=== PATIENT | female | born 1965 | race African-American/Black ===

== ENCOUNTER 2017-04-13 10:38 | Inpatient (IN) | payer OTHER ==
[2017-04-13] MEDS ORDERED: MAGNESIUM HYDROX 2400MG/30ML ORAL SUSPENSION 30 ML CUP PO PRN (12:40)
[2017-04-13] MEDS ORDERED: MAG HYDROX/AL HYDROX/SIMETH 30 ML UNIT-DOSE CUP PO PRN (12:40)
[2017-04-13] MEDS ORDERED: MAGNESIUM CITRATE 300 ML BOTTLE PO PRN (12:40)
[2017-04-13] MEDS ORDERED: LOPERAMIDE HCL 2 MG CAPSULE PO PRN (12:40)
[2017-04-13] MEDS ORDERED: guaiFENesin/D-METHORPHAN HB 10 ML UNIT-DOSE CUPS PO PRN (12:40)
[2017-04-13] MEDS ORDERED: P-EPHED 60MG/TRIPROLIDI 2.5MG TABLET PO PRN (12:40)
[2017-04-13] MEDS ORDERED: MENTHOL/PHENOL 1 EACH UD MM PRN (12:40)
[2017-04-13] MEDS ORDERED: ALBUTEROL SO4 18 GM HFA INHALER IH PRN (12:41)
--- NOTE | 2017-04-13 12:43 | HP ---
JANEY DOMINGUEZ Rehab Assess/Revision - Admission History Admitted to Rehab from: [facility] Date of Admission to Rehab: 04/13/17 - Vital signs Vital Signs: Vital Signs Period Temp Pulse Resp BP Sys/[place] Pulse Ox Last 24 Hr 97.9 F 79 18 116/77 - Findings Detox History & Physical reviewed: Yes Concur with findings: Yes Inpatient Rehab Admission - Initial Determination Are CD services needed?: Yes Free of communicable disease: Yes Not in need of hospitalization: Yes - Rehab Admission Criteria Previous failed treatment: Yes Poor recovery environment: Yes Comorbidities: Yes Lacks judgement: Yes Patient is meeting Inpatient Rehab admission criteria:: Yes
[2017-04-13] MEDS: BUPRENORPHINE/NALOXONE 2 MG/0.5 MG FILM PACKET SL SCH (21:08)
[2017-04-13] MEDS: THIAMINE HCL 100 MG TABLET (FP) PO SCH (21:08)
[2017-04-14] MEDS: BUPRENORPHINE/NALOXONE 2 MG/0.5 MG FILM PACKET SL SCH ×2 (09:42→21:09)
[2017-04-14] MEDS: NICOTINE 14 MG/24 HOURS TOPICAL PATCH TD SCH (09:42)
[2017-04-14] MEDS: PRENATAL VITAMINS W/ FOLIC ACID TABLET (FP) PO SCH (09:42)
[2017-04-14] MEDS ORDERED: AMMONIUM LACTATE 12% LOTION 225 GM BOTTLE TP PRN (15:42)
[2017-04-14] MEDS: MAG HYDROX/ALH/SMC/DPHA/LIDO 240 ML MOUTHWASH MM SCH (18:10)
[2017-04-14] MEDS ORDERED: PT OWN MED DRAWER 7, Y5N ONE ×2 (19:27→23:31)
[2017-04-14] MEDS: THIAMINE HCL 100 MG TABLET (FP) PO SCH (21:09)
[2017-04-15] MEDS: MAG HYDROX/ALH/SMC/DPHA/LIDO 240 ML MOUTHWASH MM SCH ×5 (00:25→23:14)
[2017-04-15] MEDS: NICOTINE 14 MG/24 HOURS TOPICAL PATCH TD SCH (09:48)
[2017-04-15] MEDS: BUPRENORPHINE/NALOXONE 2 MG/0.5 MG FILM PACKET SL SCH (09:49)
[2017-04-15] MEDS: PRENATAL VITAMINS W/ FOLIC ACID TABLET (FP) PO SCH (09:49)
[2017-04-15] MEDS: NICOTINE POLACRILEX 2 MG GUM BUC PRN (09:50)
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
--- NOTE | 2017-04-15 15:33 | PN ---
S Progress Note (SOAP) Subjective: patient requesting increase suboxone, still has cravings, desire to use, dry skin Objective: 04/15/17 15:32 Vital Signs - 24 hr 04/15/17 04/15/17 04/15/17 00:30 03:30 07:04 Temperature 97.7 F Pulse Rate 75 Respiratory 16 16 18 Rate Blood Pressure 124/82 Laboratory Tests 04/14/17 06:00 HIV 1&2 Antibody Screen Negative HIV P24 Antigen Negative labs reviewed Assessment: 04/15/17 15:32 increase suboxone to 8mg daily, 4mg stat dose ow, a and d ointment with lachydrin for dry skin.,
[2017-04-15] MEDS ORDERED: BUPRENORPHINE/NALOXONE 2 MG/0.5 MG FILM PACKET SL ONE (15:48)
[2017-04-15] MEDS ORDERED: VITAMINS A AND D TOPICAL OINTMENT 60 GM TUBE TP SCH (18:00)
[2017-04-15] MEDS: traZODone HCL 50 MG TABLET (FP) PO SCH (21:03)
[2017-04-15] MEDS: THIAMINE HCL 100 MG TABLET (FP) PO SCH (21:03)
[2017-04-15] MEDS: VITAMINS A AND D TOPICAL OINTMENT 60 GM TUBE TP SCH (21:04)
[2017-04-15] MEDS: AMMONIUM LACTATE 12% LOTION 225 GM BOTTLE TP SCH (21:05)
[2017-04-16] MEDS: MAG HYDROX/ALH/SMC/DPHA/LIDO 240 ML MOUTHWASH MM SCH ×3 (06:48→19:15)
[2017-04-16] MEDS ORDERED: PT OWN MED DRAWER 7, Y5N ONE ×3 (06:48→21:07)
[2017-04-16] MEDS: CITALOPRAM HYDROBROMIDE 20 MG TABLET (FP) PO SCH (09:51)
[2017-04-16] MEDS: VITAMINS A AND D TOPICAL OINTMENT 60 GM TUBE TP SCH ×2 (09:51→21:13)
[2017-04-16] MEDS: PRENATAL VITAMINS W/ FOLIC ACID TABLET (FP) PO SCH (09:51)
[2017-04-16] MEDS: NICOTINE 14 MG/24 HOURS TOPICAL PATCH TD SCH (09:51)
[2017-04-16] MEDS: AMMONIUM LACTATE 12% LOTION 225 GM BOTTLE TP SCH ×2 (09:52→21:12)
[2017-04-16] MEDS: BUPRENORPHINE/NALOXONE 8 MG/2 MG FILM PACKET SL SCH (09:53)
[2017-04-16] MEDS: traZODone HCL 50 MG TABLET (FP) PO SCH (21:12)
[2017-04-16] MEDS: THIAMINE HCL 100 MG TABLET (FP) PO SCH (21:13)
[2017-04-17] MEDS: MAG HYDROX/ALH/SMC/DPHA/LIDO 240 ML MOUTHWASH MM SCH ×4 (00:45→18:30)
[2017-04-17] MEDS ORDERED: PT OWN MED DRAWER 7, Y5N ONE ×4 (07:00→21:06)
[2017-04-17] MEDS: PRENATAL VITAMINS W/ FOLIC ACID TABLET (FP) PO SCH (10:10)
[2017-04-17] MEDS: CITALOPRAM HYDROBROMIDE 20 MG TABLET (FP) PO SCH (10:10)
[2017-04-17] MEDS: NICOTINE 14 MG/24 HOURS TOPICAL PATCH TD SCH (10:10)
[2017-04-17] MEDS: AMMONIUM LACTATE 12% LOTION 225 GM BOTTLE TP SCH ×2 (10:11→21:09)
[2017-04-17] MEDS: VITAMINS A AND D TOPICAL OINTMENT 60 GM TUBE TP SCH ×2 (10:11→21:10)
[2017-04-17] MEDS: BUPRENORPHINE/NALOXONE 8 MG/2 MG FILM PACKET SL SCH (10:11)
[2017-04-17] MEDS: traZODone HCL 50 MG TABLET (FP) PO SCH (21:08)
[2017-04-17] MEDS: THIAMINE HCL 100 MG TABLET (FP) PO SCH (21:10)
[2017-04-18] MEDS: MAG HYDROX/ALH/SMC/DPHA/LIDO 240 ML MOUTHWASH MM SCH ×3 (00:46→18:25)
[2017-04-18] MEDS ORDERED: PT OWN MED DRAWER 7, Y5N ONE ×3 (08:23→23:18)
[2017-04-18] MEDS: AMMONIUM LACTATE 12% LOTION 225 GM BOTTLE TP SCH ×2 (09:52→21:12)
[2017-04-18] MEDS: VITAMINS A AND D TOPICAL OINTMENT 60 GM TUBE TP SCH ×2 (09:52→21:13)
[2017-04-18] MEDS: BUPRENORPHINE/NALOXONE 8 MG/2 MG FILM PACKET SL SCH (09:52)
[2017-04-18] MEDS: PRENATAL VITAMINS W/ FOLIC ACID TABLET (FP) PO SCH (09:52)
[2017-04-18] MEDS: NICOTINE 14 MG/24 HOURS TOPICAL PATCH TD SCH (09:52)
[2017-04-18] MEDS: CITALOPRAM HYDROBROMIDE 20 MG TABLET (FP) PO SCH (09:52)
[2017-04-18] MEDS: traZODone HCL 50 MG TABLET (FP) PO SCH (21:12)
[2017-04-18] MEDS: THIAMINE HCL 100 MG TABLET (FP) PO SCH (21:13)
[2017-04-19] MEDS: MAG HYDROX/ALH/SMC/DPHA/LIDO 240 ML MOUTHWASH MM SCH ×6 (07:24→23:45)
[2017-04-19] MEDS ORDERED: PT OWN MED DRAWER 7, Y5N ONE (08:13)
[2017-04-19] MEDS: NICOTINE 14 MG/24 HOURS TOPICAL PATCH TD SCH (09:37)
[2017-04-19] MEDS: VITAMINS A AND D TOPICAL OINTMENT 60 GM TUBE TP SCH ×2 (09:38→21:02)
[2017-04-19] MEDS: BUPRENORPHINE/NALOXONE 8 MG/2 MG FILM PACKET SL SCH (09:38)
[2017-04-19] MEDS: CITALOPRAM HYDROBROMIDE 20 MG TABLET (FP) PO SCH (09:38)
[2017-04-19] MEDS: AMMONIUM LACTATE 12% LOTION 225 GM BOTTLE TP SCH ×2 (09:38→21:02)
[2017-04-19] MEDS: PRENATAL VITAMINS W/ FOLIC ACID TABLET (FP) PO SCH (09:38)
[2017-04-19] MEDS: THIAMINE HCL 100 MG TABLET (FP) PO SCH (21:01)
[2017-04-19] MEDS: traZODone HCL 50 MG TABLET (FP) PO SCH (21:01)
[2017-04-20] MEDS: MAG HYDROX/ALH/SMC/DPHA/LIDO 240 ML MOUTHWASH MM SCH ×4 (06:49→23:16)
[2017-04-20] MEDS ORDERED: PT OWN MED DRAWER 7, Y5N ONE ×2 (07:37→19:28)
[2017-04-20] MEDS: PRENATAL VITAMINS W/ FOLIC ACID TABLET (FP) PO SCH (09:16)
[2017-04-20] MEDS: NICOTINE 14 MG/24 HOURS TOPICAL PATCH TD SCH (09:16)
[2017-04-20] MEDS: CITALOPRAM HYDROBROMIDE 20 MG TABLET (FP) PO SCH (09:16)
[2017-04-20] MEDS: AMMONIUM LACTATE 12% LOTION 225 GM BOTTLE TP SCH ×2 (09:17→21:08)
[2017-04-20] MEDS: BUPRENORPHINE/NALOXONE 8 MG/2 MG FILM PACKET SL SCH (09:17)
[2017-04-20] MEDS: VITAMINS A AND D TOPICAL OINTMENT 60 GM TUBE TP SCH ×2 (11:00→21:07)
[2017-04-20] MEDS: THIAMINE HCL 100 MG TABLET (FP) PO SCH (21:07)
[2017-04-20] MEDS: traZODone HCL 50 MG TABLET (FP) PO SCH (21:07)
[2017-04-21] MEDS: MAG HYDROX/ALH/SMC/DPHA/LIDO 240 ML MOUTHWASH MM SCH ×4 (06:49→23:37)
[2017-04-21] MEDS ORDERED: PT OWN MED DRAWER 7, Y5N ONE ×3 (08:16→21:00)
[2017-04-21] MEDS: BUPRENORPHINE/NALOXONE 8 MG/2 MG FILM PACKET SL SCH (09:37)
[2017-04-21] MEDS: AMMONIUM LACTATE 12% LOTION 225 GM BOTTLE TP SCH ×2 (09:37→21:07)
[2017-04-21] MEDS: NICOTINE 14 MG/24 HOURS TOPICAL PATCH TD SCH (09:37)
[2017-04-21] MEDS: CITALOPRAM HYDROBROMIDE 20 MG TABLET (FP) PO SCH (09:37)
[2017-04-21] MEDS: PRENATAL VITAMINS W/ FOLIC ACID TABLET (FP) PO SCH (09:37)
[2017-04-21] MEDS: VITAMINS A AND D TOPICAL OINTMENT 60 GM TUBE TP SCH ×2 (09:37→21:07)
[2017-04-21] MEDS: traZODone HCL 50 MG TABLET (FP) PO SCH (21:06)
[2017-04-21] MEDS: THIAMINE HCL 100 MG TABLET (FP) PO SCH (21:06)
[2017-04-22] MEDS ORDERED: PT OWN MED DRAWER 7, Y5N ONE ×4 (05:38→23:12)
[2017-04-22] MEDS: MAG HYDROX/ALH/SMC/DPHA/LIDO 240 ML MOUTHWASH MM SCH ×4 (06:42→23:20)
[2017-04-22] MEDS: CITALOPRAM HYDROBROMIDE 20 MG TABLET (FP) PO SCH (10:06)
[2017-04-22] MEDS: NICOTINE 14 MG/24 HOURS TOPICAL PATCH TD SCH (10:07)
[2017-04-22] MEDS: AMMONIUM LACTATE 12% LOTION 225 GM BOTTLE TP SCH ×2 (10:07→21:10)
[2017-04-22] MEDS: VITAMINS A AND D TOPICAL OINTMENT 60 GM TUBE TP SCH ×2 (10:07→21:10)
[2017-04-22] MEDS: PRENATAL VITAMINS W/ FOLIC ACID TABLET (FP) PO SCH (10:07)
[2017-04-22] MEDS: BUPRENORPHINE/NALOXONE 8 MG/2 MG FILM PACKET SL SCH (11:51)
[2017-04-22] MEDS: traZODone HCL 50 MG TABLET (FP) PO SCH (21:09)
[2017-04-22] MEDS: THIAMINE HCL 100 MG TABLET (FP) PO SCH (21:09)
[2017-04-23] MEDS: MAG HYDROX/ALH/SMC/DPHA/LIDO 240 ML MOUTHWASH MM SCH ×3 (06:45→17:25)
[2017-04-23] MEDS: CITALOPRAM HYDROBROMIDE 20 MG TABLET (FP) PO SCH (09:43)
[2017-04-23] MEDS: NICOTINE 14 MG/24 HOURS TOPICAL PATCH TD SCH (09:43)
[2017-04-23] MEDS: PRENATAL VITAMINS W/ FOLIC ACID TABLET (FP) PO SCH (09:43)
[2017-04-23] MEDS: BUPRENORPHINE/NALOXONE 8 MG/2 MG FILM PACKET SL SCH (09:44)
[2017-04-23] MEDS: VITAMINS A AND D TOPICAL OINTMENT 60 GM TUBE TP SCH ×2 (09:44→21:04)
[2017-04-23] MEDS: AMMONIUM LACTATE 12% LOTION 225 GM BOTTLE TP SCH ×2 (09:44→21:04)
[2017-04-23] MEDS ORDERED: PT OWN MED DRAWER 7, Y5N ONE ×2 (21:00→23:34)
[2017-04-23] MEDS: THIAMINE HCL 100 MG TABLET (FP) PO SCH (21:03)
[2017-04-23] MEDS: traZODone HCL 50 MG TABLET (FP) PO SCH (21:04)
[2017-04-24] MEDS: MAG HYDROX/ALH/SMC/DPHA/LIDO 240 ML MOUTHWASH MM SCH ×5 (01:00→23:57)
[2017-04-24] MEDS: PRENATAL VITAMINS W/ FOLIC ACID TABLET (FP) PO SCH (10:01)
[2017-04-24] MEDS: CITALOPRAM HYDROBROMIDE 20 MG TABLET (FP) PO SCH (10:02)
[2017-04-24] MEDS: BUPRENORPHINE/NALOXONE 8 MG/2 MG FILM PACKET SL SCH (10:02)
[2017-04-24] MEDS: NICOTINE 14 MG/24 HOURS TOPICAL PATCH TD SCH (10:02)
[2017-04-24] MEDS: AMMONIUM LACTATE 12% LOTION 225 GM BOTTLE TP SCH ×2 (10:05→21:12)
[2017-04-24] MEDS: VITAMINS A AND D TOPICAL OINTMENT 60 GM TUBE TP SCH ×2 (10:05→21:12)
[2017-04-24] MEDS ORDERED: PT OWN MED DRAWER 7, Y5N ONE ×2 (21:07→23:04)
[2017-04-24] MEDS: traZODone HCL 50 MG TABLET (FP) PO SCH (21:13)
[2017-04-24] MEDS: THIAMINE HCL 100 MG TABLET (FP) PO SCH (21:13)
[2017-04-25] MEDS ORDERED: PT OWN MED DRAWER 7, Y5N ONE ×5 (03:04→19:34)
[2017-04-25] MEDS: MAG HYDROX/ALH/SMC/DPHA/LIDO 240 ML MOUTHWASH MM SCH ×3 (07:05→18:02)
[2017-04-25] MEDS: CITALOPRAM HYDROBROMIDE 20 MG TABLET (FP) PO SCH (10:00)
[2017-04-25] MEDS: VITAMINS A AND D TOPICAL OINTMENT 60 GM TUBE TP SCH ×2 (10:00→21:16)
[2017-04-25] MEDS: PRENATAL VITAMINS W/ FOLIC ACID TABLET (FP) PO SCH (10:00)
[2017-04-25] MEDS: AMMONIUM LACTATE 12% LOTION 225 GM BOTTLE TP SCH ×2 (10:00→21:16)
[2017-04-25] MEDS: BUPRENORPHINE/NALOXONE 8 MG/2 MG FILM PACKET SL SCH (10:00)
[2017-04-25] MEDS: NICOTINE 14 MG/24 HOURS TOPICAL PATCH TD SCH (10:00)
--- NOTE | 2017-04-25 10:55 | PN ---
Progress Note (short form) - Note Progress Note: requests increase in suboxone from 8mg to 16mg. says she was on 16mg last month at [facility]. is having intermittent lower back pain, nonradiating without exacerbating or alleviating factors. also c/; left 3rd digit swelling and pain at PCP joint. says it started to swell and hurt prior to admission to rehab. denies falling, hand trauma, hx of arthritis, fevers, chills, abdominal pain, headache, chest pain. PE: gen: no acute distress, normal steady gait left hand: no surrounding erythema, ttp at PCP joint and mcp joint of 3rd digit. decreased rom with flexion and extension at the joint. FROM at all other fingers and wrist. 2+radial and ulnar pulses. sensation intact throughout arm and hand. no lesions, skin intact, no increased warmth. no injection sites noted. Plan: monitor suboxone at current dose, dose was recently increased on 04/22 ordered hand xray to r/o osteomylelitis discussed with Dr. Negrete <Casandra Field - Last Filed: 04/25/17 18:33> - Note Progress Note: plan discussed with resident, note reviewed, agree with above. <Noah Negrete - Last Filed: 05/06/17 11:31> Problem List - Problems (1) Alcohol dependence Code(s): F10.20 - ALCOHOL DEPENDENCE, UNCOMPLICATED (2) Cocaine dependence Code(s): F14.20 - COCAINE DEPENDENCE, UNCOMPLICATED (3) MDD (major depressive disorder), recurrent episode Code(s): F33.9 - MAJOR DEPRESSIVE DISORDER, RECURRENT, UNSPECIFIED (4) Opioid dependence Code(s): F11.20 - OPIOID DEPENDENCE, UNCOMPLICATED (5) PTSD (post-traumatic stress disorder) Code(s): F43.10 - POST-TRAUMATIC STRESS DISORDER, UNSPECIFIED (6) Drug-induced mood disorder Code(s): F19.94 - OTH PSYCHOACTIVE SUBSTANCE USE, UNSP W MOOD DISORDER (7) Opioid dependence on agonist therapy Code(s): F11.20 - OPIOID DEPENDENCE, UNCOMPLICATED <Noah Negrete - Last Filed: 05/06/17 11:31>
[2017-04-25] MEDS: THIAMINE HCL 100 MG TABLET (FP) PO SCH (21:16)
[2017-04-25] MEDS: traZODone HCL 50 MG TABLET (FP) PO SCH (21:16)
[2017-04-26] MEDS: MAG HYDROX/ALH/SMC/DPHA/LIDO 240 ML MOUTHWASH MM SCH ×4 (00:05→18:30)
[2017-04-26] MEDS ORDERED: PT OWN MED DRAWER 7, Y5N ONE ×2 (08:25→21:10)
[2017-04-26] MEDS: BUPRENORPHINE/NALOXONE 8 MG/2 MG FILM PACKET SL SCH (09:26)
[2017-04-26] MEDS: NICOTINE 14 MG/24 HOURS TOPICAL PATCH TD SCH (09:26)
[2017-04-26] MEDS: CITALOPRAM HYDROBROMIDE 20 MG TABLET (FP) PO SCH (09:26)
[2017-04-26] MEDS: PRENATAL VITAMINS W/ FOLIC ACID TABLET (FP) PO SCH (09:26)
[2017-04-26] MEDS: VITAMINS A AND D TOPICAL OINTMENT 60 GM TUBE TP SCH ×2 (09:27→21:11)
[2017-04-26] MEDS: AMMONIUM LACTATE 12% LOTION 225 GM BOTTLE TP SCH ×2 (09:27→21:11)
[2017-04-26] MEDS: THIAMINE HCL 100 MG TABLET (FP) PO SCH (21:11)
[2017-04-26] MEDS: traZODone HCL 50 MG TABLET (FP) PO SCH (21:11)
[2017-04-27] MEDS: MAG HYDROX/ALH/SMC/DPHA/LIDO 240 ML MOUTHWASH MM SCH ×4 (00:05→19:07)
[2017-04-27] MEDS ORDERED: PT OWN MED DRAWER 7, Y5N ONE ×3 (09:09→23:47)
[2017-04-27] MEDS: NICOTINE 14 MG/24 HOURS TOPICAL PATCH TD SCH (09:37)
[2017-04-27] MEDS: BUPRENORPHINE/NALOXONE 8 MG/2 MG FILM PACKET SL SCH (09:37)
[2017-04-27] MEDS: CITALOPRAM HYDROBROMIDE 20 MG TABLET (FP) PO SCH (09:37)
[2017-04-27] MEDS: PRENATAL VITAMINS W/ FOLIC ACID TABLET (FP) PO SCH (09:37)
[2017-04-27] MEDS: AMMONIUM LACTATE 12% LOTION 225 GM BOTTLE TP SCH ×2 (09:38→21:17)
[2017-04-27] MEDS: VITAMINS A AND D TOPICAL OINTMENT 60 GM TUBE TP SCH ×2 (09:38→21:17)
[2017-04-27] MEDS: THIAMINE HCL 100 MG TABLET (FP) PO SCH (21:17)
[2017-04-27] MEDS: traZODone HCL 50 MG TABLET (FP) PO SCH (21:17)
[2017-04-28] MEDS: MAG HYDROX/ALH/SMC/DPHA/LIDO 240 ML MOUTHWASH MM SCH ×5 (00:05→23:52)
[2017-04-28] MEDS ORDERED: PT OWN MED DRAWER 7, Y5N ONE ×3 (09:13→20:32)
[2017-04-28] MEDS: CITALOPRAM HYDROBROMIDE 20 MG TABLET (FP) PO SCH (09:24)
[2017-04-28] MEDS: VITAMINS A AND D TOPICAL OINTMENT 60 GM TUBE TP SCH ×2 (09:24→21:07)
[2017-04-28] MEDS: NICOTINE 14 MG/24 HOURS TOPICAL PATCH TD SCH (09:24)
[2017-04-28] MEDS: AMMONIUM LACTATE 12% LOTION 225 GM BOTTLE TP SCH ×2 (09:24→21:07)
[2017-04-28] MEDS: PRENATAL VITAMINS W/ FOLIC ACID TABLET (FP) PO SCH (09:24)
[2017-04-28] MEDS: BUPRENORPHINE/NALOXONE 8 MG/2 MG FILM PACKET SL SCH (09:24)
[2017-04-28] MEDS: THIAMINE HCL 100 MG TABLET (FP) PO SCH (21:06)
[2017-04-28] MEDS: traZODone HCL 50 MG TABLET (FP) PO SCH (21:07)
[2017-04-29] MEDS: MAG HYDROX/ALH/SMC/DPHA/LIDO 240 ML MOUTHWASH MM SCH ×3 (06:21→17:34)
[2017-04-29] MEDS: PRENATAL VITAMINS W/ FOLIC ACID TABLET (FP) PO SCH (09:36)
[2017-04-29] MEDS: NICOTINE 14 MG/24 HOURS TOPICAL PATCH TD SCH (09:36)
[2017-04-29] MEDS: CITALOPRAM HYDROBROMIDE 20 MG TABLET (FP) PO SCH (09:36)
[2017-04-29] MEDS: BUPRENORPHINE/NALOXONE 8 MG/2 MG FILM PACKET SL SCH (09:37)
[2017-04-29] MEDS: AMMONIUM LACTATE 12% LOTION 225 GM BOTTLE TP SCH ×2 (09:37→21:21)
[2017-04-29] MEDS: VITAMINS A AND D TOPICAL OINTMENT 60 GM TUBE TP SCH ×2 (10:03→21:21)
[2017-04-29] MEDS ORDERED: PT OWN MED DRAWER 7, Y5N ONE (10:44)
[2017-04-29] MEDS: IBUPROFEN 400 MG TABLET (FP) PO PRN (15:51)
[2017-04-29] MEDS: traZODone HCL 50 MG TABLET (FP) PO SCH (21:21)
[2017-04-29] MEDS: THIAMINE HCL 100 MG TABLET (FP) PO SCH (21:21)
[2017-04-29] MEDS: ACETAMINOPHEN 325 MG TABLET (FP) PO PRN (21:21)
[2017-04-30] MEDS: MAG HYDROX/ALH/SMC/DPHA/LIDO 240 ML MOUTHWASH MM SCH ×4 (00:36→18:20)
[2017-04-30] MEDS: ACETAMINOPHEN 325 MG TABLET (FP) PO PRN (05:34)
[2017-04-30] MEDS: IBUPROFEN 400 MG TABLET (FP) PO PRN (08:41)
[2017-04-30] MEDS: PRENATAL VITAMINS W/ FOLIC ACID TABLET (FP) PO SCH (09:57)
[2017-04-30] MEDS: CITALOPRAM HYDROBROMIDE 20 MG TABLET (FP) PO SCH (09:57)
[2017-04-30] MEDS: BUPRENORPHINE/NALOXONE 8 MG/2 MG FILM PACKET SL SCH (09:57)
[2017-04-30] MEDS: AMMONIUM LACTATE 12% LOTION 225 GM BOTTLE TP SCH ×2 (09:57→21:17)
[2017-04-30] MEDS: NICOTINE 14 MG/24 HOURS TOPICAL PATCH TD SCH (09:57)
[2017-04-30] MEDS: VITAMINS A AND D TOPICAL OINTMENT 60 GM TUBE TP SCH ×2 (09:58→21:16)
--- NOTE | 2017-04-30 10:44 | PN ---
[facility] Progress Note (SOAP) Subjective: c/o toothache Objective: 04/30/17 10:42 Vital Signs - 24 hr 04/30/17 04/30/17 04/30/17 00:30 03:30 06:58 Temperature 98.1 F Pulse Rate 64 Respiratory 16 16 18 Rate Blood Pressure 132/88 Laboratory Tests 04/14/17 06:00 HIV 1&2 Antibody Screen Negative HIV P24 Antigen Negative labs reveiwed, xray reviewed, neg p[atient informed of result Assessment: 04/30/17 10:42 started on naprosyn for pain, mm.
[2017-04-30] MEDS: PANTOPRAZOLE 40 MG TABLET (FP) PO SCH (12:02)
[2017-04-30] MEDS: NAPROXEN 500 MG TABLET (FP) PO SCH ×2 (12:02→21:15)
[2017-04-30] MEDS: THIAMINE HCL 100 MG TABLET (FP) PO SCH (21:15)
[2017-04-30] MEDS: traZODone HCL 50 MG TABLET (FP) PO SCH (21:15)
[2017-05-01] MEDS: MAG HYDROX/ALH/SMC/DPHA/LIDO 240 ML MOUTHWASH MM SCH ×4 (01:15→17:25)
[2017-05-01] MEDS ORDERED: PT OWN MED DRAWER 7, Y5N ONE ×3 (03:32→16:46)
[2017-05-01] MEDS: NICOTINE 14 MG/24 HOURS TOPICAL PATCH TD SCH (10:05)
[2017-05-01] MEDS: BUPRENORPHINE/NALOXONE 8 MG/2 MG FILM PACKET SL SCH (10:05)
[2017-05-01] MEDS: PANTOPRAZOLE 40 MG TABLET (FP) PO SCH (10:06)
[2017-05-01] MEDS: VITAMINS A AND D TOPICAL OINTMENT 60 GM TUBE TP SCH ×2 (10:06→21:09)
[2017-05-01] MEDS: CITALOPRAM HYDROBROMIDE 20 MG TABLET (FP) PO SCH (10:06)
[2017-05-01] MEDS: NAPROXEN 500 MG TABLET (FP) PO SCH ×2 (10:06→21:08)
[2017-05-01] MEDS: PRENATAL VITAMINS W/ FOLIC ACID TABLET (FP) PO SCH (10:06)
[2017-05-01] MEDS: AMMONIUM LACTATE 12% LOTION 225 GM BOTTLE TP SCH ×2 (10:07→21:08)
[2017-05-01] MEDS: traZODone HCL 50 MG TABLET (FP) PO SCH (21:08)
[2017-05-01] MEDS: THIAMINE HCL 100 MG TABLET (FP) PO SCH (21:09)
[2017-05-02] MEDS: MAG HYDROX/ALH/SMC/DPHA/LIDO 240 ML MOUTHWASH MM SCH ×4 (00:05→18:22)
[2017-05-02] MEDS: NAPROXEN 500 MG TABLET (FP) PO SCH ×2 (10:21→21:10)
[2017-05-02] MEDS: CITALOPRAM HYDROBROMIDE 20 MG TABLET (FP) PO SCH (10:21)
[2017-05-02] MEDS: PANTOPRAZOLE 40 MG TABLET (FP) PO SCH (10:21)
[2017-05-02] MEDS: NICOTINE 14 MG/24 HOURS TOPICAL PATCH TD SCH (10:21)
[2017-05-02] MEDS: AMMONIUM LACTATE 12% LOTION 225 GM BOTTLE TP SCH ×2 (10:21→21:11)
[2017-05-02] MEDS: BUPRENORPHINE/NALOXONE 8 MG/2 MG FILM PACKET SL SCH (10:21)
[2017-05-02] MEDS: PRENATAL VITAMINS W/ FOLIC ACID TABLET (FP) PO SCH (10:21)
[2017-05-02] MEDS: VITAMINS A AND D TOPICAL OINTMENT 60 GM TUBE TP SCH ×2 (10:22→21:10)
[2017-05-02] MEDS: THIAMINE HCL 100 MG TABLET (FP) PO SCH (21:10)
[2017-05-02] MEDS: traZODone HCL 50 MG TABLET (FP) PO SCH (21:10)
[2017-05-03] MEDS: MAG HYDROX/ALH/SMC/DPHA/LIDO 240 ML MOUTHWASH MM SCH ×5 (00:25→23:03)
[2017-05-03] MEDS ORDERED: PT OWN MED DRAWER 7, Y5N ONE ×2 (08:10→19:37)
[2017-05-03] MEDS: CITALOPRAM HYDROBROMIDE 20 MG TABLET (FP) PO SCH (09:44)
[2017-05-03] MEDS: AMMONIUM LACTATE 12% LOTION 225 GM BOTTLE TP SCH ×2 (09:44→21:03)
[2017-05-03] MEDS: PRENATAL VITAMINS W/ FOLIC ACID TABLET (FP) PO SCH (09:45)
[2017-05-03] MEDS: NICOTINE 14 MG/24 HOURS TOPICAL PATCH TD SCH (09:45)
[2017-05-03] MEDS: NAPROXEN 500 MG TABLET (FP) PO SCH ×2 (09:45→21:02)
[2017-05-03] MEDS: PANTOPRAZOLE 40 MG TABLET (FP) PO SCH (09:45)
[2017-05-03] MEDS: VITAMINS A AND D TOPICAL OINTMENT 60 GM TUBE TP SCH ×2 (09:46→21:03)
[2017-05-03] MEDS: BUPRENORPHINE/NALOXONE 8 MG/2 MG FILM PACKET SL SCH (09:46)
[2017-05-03] MEDS: traZODone HCL 50 MG TABLET (FP) PO SCH (21:02)
[2017-05-03] MEDS: THIAMINE HCL 100 MG TABLET (FP) PO SCH (21:03)
[2017-05-04] MEDS: MAG HYDROX/ALH/SMC/DPHA/LIDO 240 ML MOUTHWASH MM SCH ×4 (06:23→23:05)
[2017-05-04] MEDS: CITALOPRAM HYDROBROMIDE 20 MG TABLET (FP) PO SCH (09:51)
[2017-05-04] MEDS: PRENATAL VITAMINS W/ FOLIC ACID TABLET (FP) PO SCH (09:51)
[2017-05-04] MEDS: PANTOPRAZOLE 40 MG TABLET (FP) PO SCH (09:51)
[2017-05-04] MEDS: NAPROXEN 500 MG TABLET (FP) PO SCH ×2 (09:51→21:04)
[2017-05-04] MEDS: AMMONIUM LACTATE 12% LOTION 225 GM BOTTLE TP SCH ×2 (09:52→21:04)
[2017-05-04] MEDS: BUPRENORPHINE/NALOXONE 8 MG/2 MG FILM PACKET SL SCH (09:52)
[2017-05-04] MEDS: NICOTINE 14 MG/24 HOURS TOPICAL PATCH TD SCH (09:52)
[2017-05-04] MEDS: NICOTINE POLACRILEX 2 MG GUM BUC PRN ×2 (09:53→21:06)
[2017-05-04] MEDS: VITAMINS A AND D TOPICAL OINTMENT 60 GM TUBE TP SCH ×2 (09:53→21:04)
[2017-05-04] MEDS ORDERED: PT OWN MED DRAWER 7, Y5N ONE (19:11)
[2017-05-04] MEDS: traZODone HCL 50 MG TABLET (FP) PO SCH (21:04)
[2017-05-04] MEDS: THIAMINE HCL 100 MG TABLET (FP) PO SCH (21:04)
[2017-05-05] MEDS: MAG HYDROX/ALH/SMC/DPHA/LIDO 240 ML MOUTHWASH MM SCH ×4 (06:26→23:53)
[2017-05-05] MEDS ORDERED: PT OWN MED DRAWER 7, Y5N ONE ×3 (07:46→23:42)
[2017-05-05] MEDS: PRENATAL VITAMINS W/ FOLIC ACID TABLET (FP) PO SCH (10:00)
[2017-05-05] MEDS: NAPROXEN 500 MG TABLET (FP) PO SCH ×2 (10:00→21:08)
[2017-05-05] MEDS: AMMONIUM LACTATE 12% LOTION 225 GM BOTTLE TP SCH ×2 (10:01→21:09)
[2017-05-05] MEDS: PANTOPRAZOLE 40 MG TABLET (FP) PO SCH (10:01)
[2017-05-05] MEDS: NICOTINE 14 MG/24 HOURS TOPICAL PATCH TD SCH (10:01)
[2017-05-05] MEDS: CITALOPRAM HYDROBROMIDE 20 MG TABLET (FP) PO SCH (10:01)
[2017-05-05] MEDS: NICOTINE POLACRILEX 2 MG GUM BUC PRN (10:02)
[2017-05-05] MEDS: BUPRENORPHINE/NALOXONE 8 MG/2 MG FILM PACKET SL SCH (10:02)
[2017-05-05] MEDS: VITAMINS A AND D TOPICAL OINTMENT 60 GM TUBE TP SCH ×2 (10:02→21:08)
[2017-05-05] MEDS: THIAMINE HCL 100 MG TABLET (FP) PO SCH (21:08)
[2017-05-05] MEDS: traZODone HCL 50 MG TABLET (FP) PO SCH (21:08)
[2017-05-06] MEDS: MAG HYDROX/ALH/SMC/DPHA/LIDO 240 ML MOUTHWASH MM SCH ×3 (06:32→18:15)
[2017-05-06] MEDS: CITALOPRAM HYDROBROMIDE 20 MG TABLET (FP) PO SCH (09:50)
[2017-05-06] MEDS: VITAMINS A AND D TOPICAL OINTMENT 60 GM TUBE TP SCH ×2 (09:50→21:15)
[2017-05-06] MEDS: NICOTINE 14 MG/24 HOURS TOPICAL PATCH TD SCH (09:50)
[2017-05-06] MEDS: PRENATAL VITAMINS W/ FOLIC ACID TABLET (FP) PO SCH (09:50)
[2017-05-06] MEDS: PANTOPRAZOLE 40 MG TABLET (FP) PO SCH (09:50)
[2017-05-06] MEDS: AMMONIUM LACTATE 12% LOTION 225 GM BOTTLE TP SCH ×2 (09:50→21:14)
[2017-05-06] MEDS: NAPROXEN 500 MG TABLET (FP) PO SCH ×2 (09:50→21:15)
[2017-05-06] MEDS: BUPRENORPHINE/NALOXONE 8 MG/2 MG FILM PACKET SL SCH (10:41)
[2017-05-06] MEDS ORDERED: PT OWN MED DRAWER 7, Y5N ONE ×3 (20:02→23:00)
[2017-05-06] MEDS: THIAMINE HCL 100 MG TABLET (FP) PO SCH (21:14)
[2017-05-06] MEDS: traZODone HCL 50 MG TABLET (FP) PO SCH (21:14)
[2017-05-07] MEDS: MAG HYDROX/ALH/SMC/DPHA/LIDO 240 ML MOUTHWASH MM SCH ×4 (00:59→17:25)
[2017-05-07] MEDS: PANTOPRAZOLE 40 MG TABLET (FP) PO SCH (10:02)
[2017-05-07] MEDS: NAPROXEN 500 MG TABLET (FP) PO SCH ×2 (10:02→21:06)
[2017-05-07] MEDS: CITALOPRAM HYDROBROMIDE 20 MG TABLET (FP) PO SCH (10:02)
[2017-05-07] MEDS: AMMONIUM LACTATE 12% LOTION 225 GM BOTTLE TP SCH ×2 (10:02→21:06)
[2017-05-07] MEDS: PRENATAL VITAMINS W/ FOLIC ACID TABLET (FP) PO SCH (10:02)
[2017-05-07] MEDS: BUPRENORPHINE/NALOXONE 8 MG/2 MG FILM PACKET SL SCH (10:03)
[2017-05-07] MEDS: NICOTINE POLACRILEX 2 MG GUM BUC PRN (10:03)
[2017-05-07] MEDS: VITAMINS A AND D TOPICAL OINTMENT 60 GM TUBE TP SCH ×2 (10:03→21:06)
[2017-05-07] MEDS: NICOTINE 14 MG/24 HOURS TOPICAL PATCH TD SCH (10:03)
[2017-05-07] MEDS ORDERED: PT OWN MED DRAWER 7, Y5N ONE (21:02)
[2017-05-07] MEDS: THIAMINE HCL 100 MG TABLET (FP) PO SCH (21:06)
[2017-05-07] MEDS: traZODone HCL 50 MG TABLET (FP) PO SCH (21:06)
[2017-05-08] MEDS: MAG HYDROX/ALH/SMC/DPHA/LIDO 240 ML MOUTHWASH MM SCH ×4 (00:57→17:13)
[2017-05-08] MEDS: PRENATAL VITAMINS W/ FOLIC ACID TABLET (FP) PO SCH (09:45)
[2017-05-08] MEDS: NAPROXEN 500 MG TABLET (FP) PO SCH ×2 (09:45→21:02)
[2017-05-08] MEDS: BUPRENORPHINE/NALOXONE 8 MG/2 MG FILM PACKET SL SCH (09:45)
[2017-05-08] MEDS: CITALOPRAM HYDROBROMIDE 20 MG TABLET (FP) PO SCH (09:45)
[2017-05-08] MEDS: PANTOPRAZOLE 40 MG TABLET (FP) PO SCH (09:45)
[2017-05-08] MEDS: AMMONIUM LACTATE 12% LOTION 225 GM BOTTLE TP SCH ×2 (09:46→21:03)
[2017-05-08] MEDS: NICOTINE 14 MG/24 HOURS TOPICAL PATCH TD SCH (09:46)
[2017-05-08] MEDS: NICOTINE POLACRILEX 2 MG GUM BUC PRN (09:47)
[2017-05-08] MEDS: VITAMINS A AND D TOPICAL OINTMENT 60 GM TUBE TP SCH ×2 (09:47→21:03)
[2017-05-08] MEDS ORDERED: PT OWN MED DRAWER 7, Y5N ONE ×2 (20:59→22:49)
[2017-05-08] MEDS: THIAMINE HCL 100 MG TABLET (FP) PO SCH (21:02)
[2017-05-08] MEDS: traZODone HCL 50 MG TABLET (FP) PO SCH (21:02)
[2017-05-09] MEDS: MAG HYDROX/ALH/SMC/DPHA/LIDO 240 ML MOUTHWASH MM SCH ×2 (00:14→06:40)
[2017-05-09 07:04] VITALS: BP 126/75; PULSE 61; TEMP 97.8
[2017-05-09] MEDS: CITALOPRAM HYDROBROMIDE 20 MG TABLET (FP) PO SCH (10:00)
[2017-05-09] MEDS: NAPROXEN 500 MG TABLET (FP) PO SCH (10:00)
[2017-05-09] MEDS: PRENATAL VITAMINS W/ FOLIC ACID TABLET (FP) PO SCH (10:00)
[2017-05-09] MEDS: PANTOPRAZOLE 40 MG TABLET (FP) PO SCH (10:00)
[2017-05-09] MEDS: VITAMINS A AND D TOPICAL OINTMENT 60 GM TUBE TP SCH (10:00)
[2017-05-09] MEDS: NICOTINE 14 MG/24 HOURS TOPICAL PATCH TD SCH (10:00)
[2017-05-09] MEDS: AMMONIUM LACTATE 12% LOTION 225 GM BOTTLE TP SCH (10:00)
[2017-05-09] MEDS: BUPRENORPHINE/NALOXONE 8 MG/2 MG FILM PACKET SL SCH (10:00)
== END 2017-05-09 10:15 | disposition home or self-care (01) | DRG 772 ==
LOC: YASAS 10:38 → Y3E 10:39
PROVIDERS: ADMIT Psychiatry & Neurology Psychiatry; ATTEND Psychiatry & Neurology Psychiatry
PROC: HZ42ZZZ Group Counseling for Substance Abuse Treatment, Cognitive-Behavioral (ICD-10-PCS; principal; 2017-04-13)
DX: F11.20 Opioid dependence, uncomplicated (principal); F10.20 Alcohol dependence, uncomplicated; F14.20 Cocaine dependence, uncomplicated; F17.210 Nicotine dependence, cigarettes, uncomplicated; F33.9 Major depressive disorder, recurrent, unspecified; F43.10 Post-traumatic stress disorder, unspecified
CPT/HCPCS: 36415; 73130-TC-LT; 87389

== ENCOUNTER 2017-08-29 17:10 | Inpatient (IN) | payer OTHER ==
[2017-08-29 20:52] VITALS: BMI 22.6
--- NOTE | 2017-08-29 21:31 | HP ---
COWS - Scale Resting Pulse: 0= [place] 80 or Below Sweatin=Flushed/Facial Moisture Restless Observation: 1= Difficult to Sit Still Pupil Size: 1= Pupils >than Normal Bone or Joint Aches: 2= Severe Diffuse Aches Runny Nose/ Eye Tearin= Runny Nose/Eyes GI Upset > 30mins: 1= Stomach Cramp Tremor Observation: 1= Tremor [place], Not Seen Yawning Observation: 1= 1-2x During Session Anxiety or Irritability: 1=Feels Anxious/Irritable Goose Flesh Skin: 3=Piloerection COWS Score: 15 CIWA Score - CIWA Score Nausea/Vomitin-Mild Nausea/No Vomiting Muscle Tremors: 2 Anxiety: 2 Agitation: 2 Paroxysmal Sweats: 2 Orientation: 0-Oriented Tacttile Disturbances: 0-None Auditory Disturbances: 1-Very Mild Visual Disturbances: 1-Very Mild Sensitivity Headache: 2-Mild CIWA-Ar Total Score: 13 Admission ROS S - HPI Chief Complaint: WITHDRAWAL SYMPTOMS Allergies/Adverse Reactions: Allergies Allergy/AdvReac Type Severity Reaction Status Date / Time No Known Allergies Allergy Verified 08/29/17 21:18 History of Present Illness: 51 Y.O. WOMAN WITH A HISTORY OF HEROIN AND ALCOHOL DEPENDENCE. SHE WAS PREVIOUSLY PRESCRIBED SUBOXONE AND THE LAST TIME SHE FILLED HER 7 DAY PRESCRIPTION WAS ON 07/20/17. SHE STATES DUE TO LOSS OF INSURANCE, SHE COULD CONTINUE GETTING REFILLS AND STARING USING HEROIN. LONGEST PERIOD CLEAN HAS BEEN 5 YEARS. SHE LAST COMPLETED DETOX IN 04/2017 AND REHAB ON 05/2017. Exam Limitations: No Limitations - Ebola screening Have you been sick,other than usual withdrawal symptoms: No - Review of Systems Constitutional: Chills, Diaphoresis, Loss of Appetite, Unintentional Wgt. Loss EENT: reports: Tearing, Nose Congestion Respiratory: reports: Wheezing Cardiac: reports: No Symptoms Reported GI: reports: No Symptoms Reported : reports: No Symptoms Reported Musculoskeletal: reports: Back Pain Integumentary: reports: No Symptoms Reported Neuro: reports: No Symptoms reported Endocrine: reports: No Symptoms Reported Hematology: reports: Anemia (ALEXANDRA) Psychiatric: reports: Orientated x3, Depressed Other Systems: Reviewed and Negative Patient History - Patient Medical History Hx Anemia: Yes (heavy periods) Hx Asthma: Yes Hx Chronic Obstructive Pulmonary Disease (COPD): No Hx Cancer: No Hx Cardiac Disorders: No Hx Congestive Heart Failure: No Hx Hypertension: No Hx Hypercholesterolemia: No Hx Pacemaker: No HX Cerebrovascular Accident: No Hx Seizures: No Hx Dementia: No Hx Diabetes: No Hx Gastrointestinal Disorders: No Hx Liver Disease: No Hx Genitourinary Disorders: No Hx Sexually Transmitted Disorders: No Hx Renal Disease (ESRD): No Hx Thyroid Disease: No Hx Human Immunodeficiency Virus (HIV): No Hx Hepatitis C: Yes (no treatment undetectable viral load) Hx Depression: Yes Hx Suicide Attempt: No Hx Bipolar Disorder: No Hx Schizophrenia: No - Patient Surgical History Past Surgical History: Yes Hx Neurologic Surgery: No Hx Cataract Extraction: No Hx Cardiac Surgery: No Hx Lung Surgery: No Hx Breast Surgery: No Hx Breast Biopsy: No Hx Abdominal Surgery: Yes (Spleenectomy in 2000 from [facility]) Hx Appendectomy: No Hx Cholecystectomy: No Hx Genitourinary Surgery: No Hx Section: No Hx Orthopedic Surgery: No Anesthesia Reaction: No - PPD History Previous Implant?: Yes Documented Results: Negative w/proof Date: 04/11/17 Results: 0mm PPD to be Administered?: No - Reproductive History Patient is a Female of Child Bearing Age (11 -55 yrs old): Yes Last Menstrual Period: 08/04/17 Patient : No - Smoking Cessation Smoking history: Current every day smoker Have you smoked in the past 12 months: Yes Aproximately how many cigarettes per day: 4 Hx Chewing Tobacco Use: No Initiated information on smoking cessation: Yes 'Breaking Loose' booklet given: 08/29/17 - Substance & Tx. History Hx Alcohol Use: Yes Hx Substance Use: Yes Substance Use Type: Alcohol, Heroin Hx Substance Use Treatment: Yes (DETOX: 04/2017; REHA: 05/2017) - Substances Abused Alcohol Route: Oral Frequency: Daily Amount used: liqour- 1 pint Age of first use: 19 Date of Last Use: 08/29/17 Heroin Route: Inhalation Frequency: Daily Amount used: 5 bags Age of first use: 32 Date of Last Use: 08/29/17 Cocaine Route: Smoking Frequency: Daily Amount used: 10bags Age of first use: 27 Date of Last Use: 08/29/17 Family Disease History - Family Disease History Family Disease History: Other: Mother (schizophrenia) Admission Physical Exam [facility] - Vital Signs Vital Signs: Vital Signs - 24 hr 08/29/17 20:49 Temperature 96.5 F L Pulse Rate 60 Respiratory 18 Rate Blood Pressure 136/82 - Physical General Appearance: Yes: Sweating, Anxious HEENTM: Yes: Hearing grossly Normal, Normocephalic, Normal Voice Respiratory: Yes: Chest Non-Tender, Lungs Clear, Normal Breath Sounds, No Respiratory Distress, No Accessory Muscle Use Neck: Yes: No masses,lesions,Nodules, Trachea in good position Breast: Yes: Breast Exam Deferred Cardiology: Yes: Regular Rhythm, Regular Rate Abdominal: Yes: Normal Bowel Sounds, Non Tender Genitourinary: Yes: Other (NO COMPLAINTS REPORTED) Back: Yes: Normal Inspection Musculoskeletal: Yes: Gait Steady, Pelvis Stable Extremities: Yes: Normal Capillary Refill, Normal Inspection, Normal Range of Motion, Non-Tender Neurological: Yes: Alert, Normal Mood/Affect, Normal Response Integumentary: Yes: Normal Color, Dry, Warm Lymphatic: Yes: Within Normal Limits - Diagnostic (1) Alcohol dependence with uncomplicated withdrawal Current Visit: Yes Status: Acute (2) Cocaine dependence Current Visit: Yes Status: Acute (3) Asthma Current Visit: Yes Status: Chronic Qualifiers: Asthma severity: mild Asthma persistence: intermittent Asthma complication type: with status asthmaticus Qualified Code(s): J45.22 - Mild intermittent asthma with status asthmaticus (4) Nicotine dependence Current Visit: Yes Status: Chronic (5) Opioid dependence with withdrawal Current Visit: Yes Status: Acute Cleared for Admission [facility] - Detox or Rehab [facility] Level of Care: Medically Managed Detox Regimen/Protocol: Methadone/Librium [facility] Breath Alcohol Content Breath Alcohol Content: 0 Urine Pregancy Test - Result Urine Test Results: Negative- NO Line Present Urine Drug Screen - Results Drug Screen Negative: No Urine Drug Screen Results: ALICIA-Cocaine, OPI-Opiates
[2017-08-29] MEDS ORDERED: P-EPHED 60MG/TRIPROLIDI 2.5MG TABLET PO PRN (21:54)
[2017-08-29] MEDS ORDERED: METHADONE HCL 10 MG TABLET (FOR DETOX USE ONLY) PO ONE ×2 (21:54→23:00)
[2017-08-29] MEDS ORDERED: hydrOXYzine PAMOATE 50 MG CAPSULE (FP) PO PRN (21:54)
[2017-08-29] MEDS ORDERED: guaiFENesin/D-METHORPHAN HB 10 ML UNIT-DOSE CUPS PO PRN (21:54)
[2017-08-29] MEDS ORDERED: LOPERAMIDE HCL 2 MG CAPSULE PO PRN (21:54)
[2017-08-29] MEDS ORDERED: ACETAMINOPHEN 325 MG TABLET (FP) PO PRN (21:54)
[2017-08-29] MEDS ORDERED: MENTHOL/PHENOL 1 EACH UD MM PRN (21:54)
[2017-08-29] MEDS ORDERED: MAG HYDROX/AL HYDROX/SIMETH 30 ML UNIT-DOSE CUP PO PRN (21:54)
[2017-08-29] MEDS ORDERED: MAGNESIUM CITRATE 300 ML BOTTLE PO PRN (21:54)
[2017-08-29] MEDS ORDERED: MAGNESIUM HYDROX 2400MG/30ML ORAL SUSPENSION 30 ML CUP PO PRN (21:54)
[2017-08-29] MEDS ORDERED: chlordiazePOXIDE HCL 25 MG CAPSULE PO ONE (21:54)
[2017-08-29] MEDS ORDERED: NICOTINE POLACRILEX 2 MG GUM BC PRN (21:54)
[2017-08-29] MEDS ORDERED: MELATONIN 5 MG TABLETS PO PRN (22:00)
[2017-08-29] MEDS: THIAMINE HCL 100 MG TABLET (FP) PO SCH (23:06)
[2017-08-29] MEDS: chlordiazePOXIDE HCL 25 MG CAPSULE PO SCH (23:22)
[2017-08-30] MEDS: IBUPROFEN 400 MG TABLET (FP) PO PRN ×2 (02:43→14:41)
[2017-08-30] MEDS: ALBUTEROL SO4 18 GM HFA INHALER IH PRN ×2 (02:49→10:23)
[2017-08-30] MEDS: chlordiazePOXIDE HCL 25 MG CAPSULE PO PRN ×2 (02:49→14:41)
[2017-08-30] MEDS: chlordiazePOXIDE HCL 25 MG CAPSULE PO SCH ×4 (05:37→22:20)
[2017-08-30] MEDS ORDERED: METHADONE HCL 10 MG TABLET (FOR DETOX USE ONLY) PO SCH (10:00)
[2017-08-30] MEDS: PRENATAL VITAMINS W/ FOLIC ACID TABLET (FP) PO SCH (10:22)
--- NOTE | 2017-08-30 10:28 | PN ---
S CIWA - CIWA Score Nausea/Vomitin Muscle Tremors: 3 Anxiety: 7-Acute Panic/Severe Agitation: 3 Paroxysmal Sweats: 2 Orientation: 0-Oriented Tacttile Disturbances: 1-Very Mild Itch/Numbness Auditory Disturbances: 1-Very Mild Visual Disturbances: 0-None Headache: 2-Mild CIWA-Ar Total Score: 22 [facility]HS COWS - Scale Resting Pulse: 0= [place] 80 or Below Sweatin= Chills/Flushing Restless Observation: 3= Extraneous Movement Pupil Size: 1= Pupils >than Normal Bone or Joint Aches: 2= Severe Diffuse Aches Runny Nose/ Eye Tearin= Nasal Congestion GI Upset > 30mins: 2= Nausea/Diarrhea Tremor Observation of Outstretched Hands: 2= Slight Tremor Visible Yawning Observation: 1= 1-2x During Session Anxiety or Irritability: 2=Irritable/Anxious Goose Flesh Skin: 0=Smooth Skin COWS Score: 15 BHS Progress Note (SOAP) Subjective: ALERT,IRRITABLE,ANXIOUS,INTERRUPTED SLEEP,TREMOR,PAIN IN THE BODY AND BACK Objective: 08/30/17 10:25 Vital Signs Temperature 98.1 F 08/30/17 10:00 Pulse Rate 78 08/30/17 10:00 Respiratory Rate 16 08/30/17 10:00 Blood Pressure 110/68 08/30/17 10:00 O2 Sat by Pulse Oximetry (%) EKG SINUS BRADYCARDIA WITH SINUS ARRHYTHMIA PROLONG QT 444/439 NO CHEST PAIN,NO SOB,NO DIZZINESS LABS PENDING Assessment: 08/30/17 10:28 WITHDRAWAL SYMPTOM Plan: CONTINUE DETOX
[2017-08-30 10:30] LABS: HEMATOCRIT 37.2 % (32.4-45.2); HEMOGLOBIN 12.3 GM/dL (10.7-15.3); MCH 30.9 pg (25.7-33.7); MCHC 33.2 g/dl (32.0-36.0); MEAN CELL VOLUME 93.2 fl (80-96); MEAN PLT VOLUME 9.2 fl (7.5-11.1); PLATELET COUNT 219 K/MM3 (134-434); RBC 3.99 M/mm3 (3.60-5.2); RDW 13.4 % (11.6-15.6); WHITE BLOOD COUNT 7.7 K/mm3 (4.0-10.0)
[2017-08-30 10:31] LABS: CHLORIDE 107 mmol/L (98-107); POTASSIUM 3.8 mmol/L (3.5-5.1); SODIUM 143 mmol/L (136-145)
[2017-08-30 10:36] LABS: ALBUMIN 3.8 g/dl (3.4-5.0); ALK PHOS 69 U/L (45-117); ANION GAP 6 (8-16); BILIRUBIN,TOTAL 0.3 mg/dL (0.2-1.0); BLOOD UREA NITROGEN 16 mg/dL (7-18); CO2 30 mmol/L (21-32); GLUCOSE,RANDOM 76 mg/dL (74-106); SGOT/AST 17 U/L (15-37); SGPT/ALT 15 U/L (12-78); TOT PROT 6.5 g/dl (6.4-8.2)
[2017-08-30 10:58] LABS: URINE APPEARANCE SLCLOUDY; URINE BILIRUBIN NEGATIVE (<2.0 mg/dL); URINE BLOOD NEGATIVE (NEGATIVE); URINE COLOR YELLOW; URINE GLUCOSE (UA) NEGATIVE (NEGATIVE); URINE KETONE TRACE (NEGATIVE); URINE LEUK ESTERASE NEGATIVE (NEGATIVE); URINE NITRITE NEGATIVE (NEGATIVE); URINE PROTEIN NEGATIVE (NEGATIVE)
--- NOTE | 2017-08-30 11:35 | EKG ---
Test Reason : Blood Pressure : / mmHG Vent. Rate : 059 BPM Atrial Rate : 059 BPM P-R Int : 158 ms QRS Dur : 086 ms QT Int : 444 ms P-R-T Axes : 069 060 037 degrees QTc Int : 439 ms SINUS BRADYCARDIA WITH SINUS ARRHYTHMIA OTHERWISE NORMAL ECG WHEN COMPARED WITH ECG OF 10-APR-2017 09:05, NONSPECIFIC T WAVE ABNORMALITY, IMPROVED IN INFERIOR LEADS NONSPECIFIC T WAVE ABNORMALITY NO LONGER EVIDENT IN LATERAL LEADS Confirmed by ALEJANDRINA LAWRENCE MD ([id number]) on 08/30/2017 11:35:32 AM Referred By: Confirmed By:ALEJANDRINA LAWRENCE MD
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
[2017-08-30] MEDS: traZODone HCL 50 MG TABLET (FP) PO SCH (22:19)
[2017-08-30] MEDS: THIAMINE HCL 100 MG TABLET (FP) PO SCH (22:20)
[2017-08-31] MEDS: chlordiazePOXIDE HCL 25 MG CAPSULE PO SCH ×3 (06:43→17:51)
[2017-08-31] MEDS: CITALOPRAM HYDROBROMIDE 10 MG TABLET (FP) PO SCH (13:40)
[2017-08-31] MEDS: PRENATAL VITAMINS W/ FOLIC ACID TABLET (FP) PO SCH (13:40)
[2017-08-31] MEDS: METHADONE HCL 5 MG TABLET (FOR DETOX USE ONLY) PO SCH (13:40)
[2017-08-31] MEDS: chlordiazePOXIDE 5 MG CAPSULE PO SCH (22:32)
[2017-08-31] MEDS: traZODone HCL 50 MG TABLET (FP) PO SCH (22:32)
[2017-08-31] MEDS: THIAMINE HCL 100 MG TABLET (FP) PO SCH (22:33)
[2017-09-01] MEDS: chlordiazePOXIDE 5 MG CAPSULE PO SCH ×3 (05:14→17:15)
--- NOTE | 2017-09-01 10:47 | PN ---
S Progress Note (SOAP) Subjective: ALERT,IRRITABLE,ANXIOUS,INTERRUPTED SLEEP,CHRONIC LOW BACK PAIN Objective: 09/01/17 10:45 Vital Signs Temperature 97.9 F 09/01/17 09:50 Pulse Rate 90 09/01/17 09:50 Respiratory Rate 18 09/01/17 09:50 Blood Pressure 132/84 09/01/17 09:50 O2 Sat by Pulse Oximetry (%) Laboratory Last Values WBC 7.7 K/mm3 (4.0-10.0) 08/30/17 07:40 RBC 3.99 M/mm3 (3.60-5.2) 08/30/17 07:40 Hgb 12.3 GM/dL (10.7-15.3) 08/30/17 07:40 Hct 37.2 % (32.4-45.2) 08/30/17 07:40 MCV 93.2 fl (80-96) 08/30/17 07:40 MCH 30.9 pg (25.7-33.7) 08/30/17 07:40 MCHC 33.2 g/dl (32.0-36.0) 08/30/17 07:40 RDW 13.4 % (11.6-15.6) 08/30/17 07:40 Plt Count 219 K/MM3 (134-434) 08/30/17 07:40 MPV 9.2 fl (7.5-11.1) 08/30/17 07:40 Sodium 143 mmol/L (136-145) 08/30/17 07:40 Potassium 3.8 mmol/L (3.5-5.1) 08/30/17 07:40 Chloride 107 mmol/L (98-107) 08/30/17 07:40 Carbon Dioxide 30 mmol/L (21-32) 08/30/17 07:40 Anion Gap 6 (8-16) L 08/30/17 07:40 BUN 16 mg/dL (7-18) 08/30/17 07:40 Creatinine 1.0 mg/dL (0.55-1.02) 08/30/17 07:40 Creat Clearance w eGFR 58.93 (>60) 08/30/17 07:40 Random Glucose 76 mg/dL (74-106) 08/30/17 07:40 Calcium 9.0 mg/dL (8.5-10.1) 08/30/17 07:40 Total Bilirubin 0.3 mg/dL (0.2-1.0) D 08/30/17 07:40 AST 17 U/L (15-37) 08/30/17 07:40 ALT 15 U/L (12-78) 08/30/17 07:40 Alkaline Phosphatase 69 U/L (45-117) 08/30/17 07:40 Total Protein 6.5 g/dl (6.4-8.2) 08/30/17 07:40 Albumin 3.8 g/dl (3.4-5.0) 08/30/17 07:40 Urine Color Yellow 08/29/17 23:04 Urine Appearance Slcloudy 08/29/17 23:04 Urine pH 6.0 (5.0-8.0) 08/29/17 23:04 Ur Specific [place] 1.026 (1.001-1.035) 08/29/17 23:04 Urine Protein Negative (NEGATIVE) 08/29/17 23:04 Urine Glucose (UA) Negative (NEGATIVE) 08/29/17 23:04 Urine Ketones Trace (NEGATIVE) H 08/29/17 23:04 Urine Blood Negative (NEGATIVE) 08/29/17 23:04 Urine Nitrite Negative (NEGATIVE) 08/29/17 23:04 Urine Bilirubin Negative (<2.0 mg/dL) 08/29/17 23:04 Urine Urobilinogen 2.0 mg/dL (0.2-1.0) H 08/29/17 23:04 Ur Leukocyte Esterase Negative (NEGATIVE) 08/29/17 23:04 RPR Titer Nonreactive (NONREACTIVE) 08/30/17 07:40 HIV 1&2 Antibody Screen Negative 08/30/17 07:40 HIV P24 Antigen Negative 08/30/17 07:40 Assessment: 09/01/17 10:46 WITHDRAWAL SYMPTOM Plan: CONTINUE DETOX
[2017-09-01] MEDS: CITALOPRAM HYDROBROMIDE 10 MG TABLET (FP) PO SCH (11:29)
[2017-09-01] MEDS: PRENATAL VITAMINS W/ FOLIC ACID TABLET (FP) PO SCH (11:29)
[2017-09-01] MEDS: METHADONE HCL 5 MG TABLET (FOR DETOX USE ONLY) PO SCH (11:29)
[2017-09-01] MEDS: LIDOCAINE 5% TOPICAL PATCH TP SCH (14:30)
[2017-09-01] MEDS: IBUPROFEN 400 MG TABLET (FP) PO PRN (17:16)
[2017-09-01] MEDS: traZODone HCL 50 MG TABLET (FP) PO SCH (22:21)
[2017-09-01] MEDS: THIAMINE HCL 100 MG TABLET (FP) PO SCH (22:21)
[2017-09-01] MEDS: chlordiazePOXIDE HCL 10 MG CAPSULE PO SCH (22:22)
[2017-09-01] MEDS: LIDOCAINE PATCH REMOVAL MC SCH (22:22)
[2017-09-02] MEDS: chlordiazePOXIDE HCL 10 MG CAPSULE PO SCH ×3 (06:17→17:55)
[2017-09-02] MEDS ORDERED: METHADONE HCL 10 MG TABLET (FOR DETOX USE ONLY) PO SCH (10:00)
--- NOTE | 2017-09-02 10:46 | PN ---
S Progress Note (SOAP) Subjective: ALERT,IRRITABLE,ANXIOUS,INTERRUPTED SLEEP, Objective: 09/02/17 10:45 Vital Signs Temperature 97.7 F 09/02/17 06:24 Pulse Rate 93 H 09/02/17 06:24 Respiratory Rate 18 09/02/17 06:24 Blood Pressure 143/82 09/02/17 06:24 O2 Sat by Pulse Oximetry (%) Assessment: 09/02/17 10:45 WITHDRAWAL SYMPTOM Plan: CONTINUE DETOX,DISCHARGE IN AM
[2017-09-02] MEDS: LIDOCAINE 5% TOPICAL PATCH TP SCH (11:00)
[2017-09-02] MEDS: CITALOPRAM HYDROBROMIDE 10 MG TABLET (FP) PO SCH (11:00)
[2017-09-02] MEDS: PRENATAL VITAMINS W/ FOLIC ACID TABLET (FP) PO SCH (11:00)
[2017-09-02] MEDS: IBUPROFEN 400 MG TABLET (FP) PO PRN (19:06)
[2017-09-02] MEDS: traZODone HCL 50 MG TABLET (FP) PO SCH (22:08)
[2017-09-02] MEDS: THIAMINE HCL 100 MG TABLET (FP) PO SCH (22:08)
[2017-09-02] MEDS: LIDOCAINE PATCH REMOVAL MC SCH (22:09)
[2017-09-03] MEDS ORDERED: METHADONE HCL 5 MG TABLET (FOR DETOX USE ONLY) PO SCH (06:00)
[2017-09-03 06:03] VITALS: TEMP 97.9
--- NOTE | 2017-09-03 08:35 | PN ---
S Progress Note (SOAP) Subjective: ALERT,NO COMPLAINT Objective: 09/03/17 08:33 Vital Signs Temperature 97.9 F 09/03/17 06:02 Pulse Rate 79 09/03/17 06:02 Respiratory Rate 18 09/03/17 06:02 Blood Pressure 130/83 09/03/17 06:02 O2 Sat by Pulse Oximetry (%) Assessment: 09/03/17 08:33 DETOX COMPLETED,NO WITHDRAWAL SYMPTOM Plan: DISCHARGE TODAY,FOLLOW UP WITH AFTER CARE PROGRAM ARRANGEMENT
--- NOTE | 2017-09-03 08:39 | DS ---
[facility] Detox Discharge Summary Admission Date: 08/29/17 Discharge Date: 09/03/17 - History Present History: Alcohol Dependence, Cocaine Dependence, Opioid Dependence Additional Comments: FOLLOW UP WITH AFTER CARE PROGRAM ARRANGEMENT Pertinent Past History: ASTHMA NICOTINE DEPENDENCE LOW BACK PAIN - Physical Exam Results Vital Signs: Vital Signs Temperature 97.9 F 09/03/17 06:02 Pulse Rate 79 09/03/17 06:02 Respiratory Rate 18 09/03/17 06:02 Blood Pressure 130/83 09/03/17 06:02 O2 Sat by Pulse Oximetry (%) Pertinent Admission Physical Exam Findings: WITHDRAWAL SIGNS AND SYMPTOM - Treatment Hospital Course: Detox Protocol Followed, Detoxed Safely, Responded well, Discharged Condition Good, Rehab Referral Accepted Patient has Accepted a Rehab Referral to: [facility] - Medication Discharge Medications: Ambulatory Orders Citalopram Hydrobromide [Celexa -] 20 mg PO DAILY #30 tablet 04/10/17 Albuterol Sulfate Inhaler - [Ventolin HFA Inhaler -] 2 inh PO Q4H PRN #1 inhaler 04/13/17 Buprenorphine/Naloxone [Suboxone 2Mg/0.5MG Sl Film -] 1 film SL BID 04/13/17 Buprenorphine/Naloxone [Suboxone 8Mg/2Mg Sl Film -] 1 each SL DAILY #4 film MDD 8mg/2mg 05/08/17 Citalopram Hydrobromide [Celexa -] 20 mg PO DAILY #30 tablet 05/08/17 traZODone HCL [Desyrel -] 50 mg PO HS #30 tablet 05/08/17 - Diagnosis (1) Opioid dependence with withdrawal Current Visit: Yes Status: Acute (2) Alcohol dependence with uncomplicated withdrawal Current Visit: Yes Status: Acute (3) Cocaine dependence Current Visit: Yes Status: Acute (4) Asthma Current Visit: Yes Status: Chronic Qualifiers: Asthma severity: mild Asthma persistence: intermittent Asthma complication type: with status asthmaticus Qualified Code(s): J45.22 - Mild intermittent asthma with status asthmaticus (5) Nicotine dependence Current Visit: Yes Status: Acute - AMA Did Patient Leave Against Medical Advice: No
[2017-09-03 09:19] VITALS: BP 125/80; PULSE 92
[2017-09-03] MEDS: CITALOPRAM HYDROBROMIDE 10 MG TABLET (FP) PO SCH (10:16)
[2017-09-03] MEDS: PRENATAL VITAMINS W/ FOLIC ACID TABLET (FP) PO SCH (10:16)
[2017-09-03] MEDS: LIDOCAINE 5% TOPICAL PATCH TP SCH (10:17)
== END 2017-09-03 11:09 | disposition other institution (70) | DRG 773 ==
LOC: YASAS 17:10 → Y6N 21:16
PROVIDERS: ADMIT Internal Medicine; ATTEND Internal Medicine
PROC: HZ2ZZZZ Detoxification Services for Substance Abuse Treatment (ICD-10-PCS; principal; 2017-08-29)
DX: F11.23 Opioid dependence with withdrawal (principal); F10.230 Alcohol dependence with withdrawal, uncomplicated; F14.20 Cocaine dependence, uncomplicated; F17.210 Nicotine dependence, cigarettes, uncomplicated; F19.24 Other psychoactive substance dependence with psychoactive substance-induced mood disorder; F43.10 Post-traumatic stress disorder, unspecified; J45.22 Mild intermittent asthma with status asthmaticus; G47.00 Insomnia, unspecified; R00.1 Bradycardia, unspecified; I49.9 Cardiac arrhythmia, unspecified; B18.2 Chronic viral hepatitis C
CPT/HCPCS: 36415; 80053; 81003; 85027; 86593; 87389; 93005; 93010

== ENCOUNTER 2017-09-03 11:09 | Inpatient (IN) | payer OTHER ==
[2017-09-03] MEDS ORDERED: P-EPHED 60MG/TRIPROLIDI 2.5MG TABLET PO PRN (12:23)
[2017-09-03] MEDS ORDERED: MENTHOL/PHENOL 1 EACH UD MM PRN (12:23)
[2017-09-03] MEDS ORDERED: IBUPROFEN 400 MG TABLET (FP) PO PRN (12:23)
[2017-09-03] MEDS ORDERED: MAG HYDROX/AL HYDROX/SIMETH 30 ML UNIT-DOSE CUP PO PRN (12:23)
[2017-09-03] MEDS ORDERED: hydrOXYzine PAMOATE 50 MG CAPSULE (FP) PO PRN (12:23)
[2017-09-03] MEDS ORDERED: MAGNESIUM CITRATE 300 ML BOTTLE PO PRN (12:23)
[2017-09-03] MEDS ORDERED: guaiFENesin/D-METHORPHAN HB 10 ML UNIT-DOSE CUPS PO PRN (12:23)
[2017-09-03] MEDS ORDERED: LOPERAMIDE HCL 2 MG CAPSULE PO PRN (12:23)
[2017-09-03] MEDS ORDERED: MAGNESIUM HYDROX 2400MG/30ML ORAL SUSPENSION 30 ML CUP PO PRN (12:23)
[2017-09-03] MEDS ORDERED: ACETAMINOPHEN 325 MG TABLET (FP) PO PRN (12:23)
[2017-09-03] MEDS ORDERED: ALBUTEROL SO4 18 GM HFA INHALER IH PRN (12:26)
--- NOTE | 2017-09-03 12:37 | PN ---
[facility] Progress Note Note: Patient presents to Rehab from detox for heroin withdrawal symptoms. Patient was treated with Suboxone by Dr. Roderick Hess. ISTOP checked and reference number [id number]. Last prescription date 07/20/17 for 7 days. Patient insurance lapsed and patient unable to follow up with MD. Relapsed on Heroin and came to [facility] 08/29/17 for detox. Pt would like to resume Suboxone treatment. Vital Signs Temperature 97.3 F L 09/03/17 11:23 Pulse Rate 92 H 09/03/17 11:23 Respiratory Rate 09/03/17 11:23 Blood Pressure 106/69 09/03/17 11:23 O2 Sat by Pulse Oximetry (%) Subj: patient c/o body aches, anxiety and cold sweats. General: alert and oriented x 3. Anxious. Skin: intact, moist to touch. Car: S1S2. RRR. Resp: CTA BL Ext: no edema. A/P: Encounter for suboxone Will start Suboxone 2mg today then daily and continue to monitor symptoms Continue prn Ibuprofen and Tylenol for pain
[2017-09-03] MEDS ORDERED: BUPRENORPHINE/NALOXONE 2 MG/0.5 MG FILM PACKET SL ONE (13:15)
[2017-09-03 13:28] VITALS: BMI 23.8
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
[2017-09-03] MEDS: THIAMINE HCL 100 MG TABLET (FP) PO SCH (21:32)
[2017-09-03] MEDS: MELATONIN 5 MG TABLETS PO PRN (21:33)
[2017-09-04] MEDS: NICOTINE 21 MG/24 HOURS TOPICAL PATCH TD SCH (09:48)
[2017-09-04] MEDS: PRENATAL VITAMINS W/ FOLIC ACID TABLET (FP) PO SCH (09:49)
[2017-09-04] MEDS: BUPRENORPHINE/NALOXONE 2 MG/0.5 MG FILM PACKET SL SCH (09:49)
[2017-09-04] MEDS: THIAMINE HCL 100 MG TABLET (FP) PO SCH (21:33)
[2017-09-05] MEDS: BUPRENORPHINE/NALOXONE 2 MG/0.5 MG FILM PACKET SL SCH (10:49)
[2017-09-05] MEDS: PRENATAL VITAMINS W/ FOLIC ACID TABLET (FP) PO SCH (10:49)
[2017-09-05] MEDS: NICOTINE 21 MG/24 HOURS TOPICAL PATCH TD SCH (10:49)
[2017-09-05] MEDS ORDERED: BUPRENORPHINE/NALOXONE 2 MG/0.5 MG FILM PACKET SL ONE (11:30)
[2017-09-05] MEDS: CITALOPRAM HYDROBROMIDE 20 MG TABLET (FP) PO SCH (14:00)
[2017-09-05] MEDS ORDERED: BUPRENORPHINE/NALOXONE 2 MG/0.5 MG FILM PACKET ONE (14:54)
[2017-09-05] MEDS: THIAMINE HCL 100 MG TABLET (FP) PO SCH (21:40)
[2017-09-05] MEDS: NICOTINE POLACRILEX 2 MG GUM BUC PRN (21:41)
[2017-09-05] MEDS: traZODone HCL 50 MG TABLET (FP) PO SCH (21:41)
[2017-09-06] MEDS: CITALOPRAM HYDROBROMIDE 20 MG TABLET (FP) PO SCH (10:29)
[2017-09-06] MEDS: PRENATAL VITAMINS W/ FOLIC ACID TABLET (FP) PO SCH (10:29)
[2017-09-06] MEDS: BUPRENORPHINE/NALOXONE 2 MG/0.5 MG FILM PACKET SL SCH (10:30)
[2017-09-06] MEDS: NICOTINE 21 MG/24 HOURS TOPICAL PATCH TD SCH (10:30)
[2017-09-06] MEDS: traZODone HCL 50 MG TABLET (FP) PO SCH (21:34)
[2017-09-06] MEDS: THIAMINE HCL 100 MG TABLET (FP) PO SCH (21:34)
[2017-09-07] MEDS: CITALOPRAM HYDROBROMIDE 20 MG TABLET (FP) PO SCH (09:49)
[2017-09-07] MEDS: NICOTINE 21 MG/24 HOURS TOPICAL PATCH TD SCH (09:49)
[2017-09-07] MEDS: PRENATAL VITAMINS W/ FOLIC ACID TABLET (FP) PO SCH (09:49)
[2017-09-07] MEDS: BUPRENORPHINE/NALOXONE 2 MG/0.5 MG FILM PACKET SL SCH (09:50)
[2017-09-07] MEDS: traZODone HCL 50 MG TABLET (FP) PO SCH (21:31)
[2017-09-07] MEDS: THIAMINE HCL 100 MG TABLET (FP) PO SCH (21:31)
[2017-09-07] MEDS: NICOTINE POLACRILEX 2 MG GUM BUC PRN (21:31)
[2017-09-08] MEDS: NICOTINE 21 MG/24 HOURS TOPICAL PATCH TD SCH (09:55)
[2017-09-08] MEDS: CITALOPRAM HYDROBROMIDE 20 MG TABLET (FP) PO SCH (09:55)
[2017-09-08] MEDS: NICOTINE POLACRILEX 2 MG GUM BUC PRN (09:56)
[2017-09-08] MEDS: BUPRENORPHINE/NALOXONE 2 MG/0.5 MG FILM PACKET SL SCH (09:56)
[2017-09-08] MEDS: PRENATAL VITAMINS W/ FOLIC ACID TABLET (FP) PO SCH (09:56)
[2017-09-08] MEDS ORDERED: COLLOIDAL OATMEAL 1 BAR EACH TP PRN (10:20)
--- NOTE | 2017-09-08 10:52 | PN ---
[facility] Progress Note Note: Patient presents for suboxone titration. States she feels better but still has mild cravings. Continues to have some mild body aches but denies nausea and vomiting. Vital Signs Temperature 98.2 F 09/08/17 07:25 Pulse Rate 84 09/08/17 07:25 Respiratory Rate 18 09/08/17 07:25 Blood Pressure 118/83 09/08/17 07:25 O2 Sat by Pulse Oximetry (%) Obj: General: awake and oriented x 3. In no acute distress. Skin: warm and dry Ext: no edema Neuro: CN 1-X11 intact grossly intact. A/P: Withdrawal symptoms Will increase Suboxone 8mg daily starting tomorrow continue to monitor clinically
[2017-09-08] MEDS: THIAMINE HCL 100 MG TABLET (FP) PO SCH (21:47)
[2017-09-08] MEDS: traZODone HCL 50 MG TABLET (FP) PO SCH (21:47)
[2017-09-09] MEDS: PRENATAL VITAMINS W/ FOLIC ACID TABLET (FP) PO SCH (10:13)
[2017-09-09] MEDS: BUPRENORPHINE/NALOXONE 8 MG/2 MG FILM PACKET SL SCH (10:13)
[2017-09-09] MEDS: NICOTINE 21 MG/24 HOURS TOPICAL PATCH TD SCH (10:13)
[2017-09-09] MEDS: CITALOPRAM HYDROBROMIDE 20 MG TABLET (FP) PO SCH (10:13)
[2017-09-09] MEDS: NICOTINE POLACRILEX 2 MG GUM BUC PRN (10:14)
[2017-09-09] MEDS: THIAMINE HCL 100 MG TABLET (FP) PO SCH (21:48)
[2017-09-09] MEDS: traZODone HCL 50 MG TABLET (FP) PO SCH (21:48)
[2017-09-10] MEDS: PRENATAL VITAMINS W/ FOLIC ACID TABLET (FP) PO SCH (10:26)
[2017-09-10] MEDS: NICOTINE 21 MG/24 HOURS TOPICAL PATCH TD SCH (10:27)
[2017-09-10] MEDS: CITALOPRAM HYDROBROMIDE 20 MG TABLET (FP) PO SCH (10:27)
[2017-09-10] MEDS: BUPRENORPHINE/NALOXONE 8 MG/2 MG FILM PACKET SL SCH (10:27)
[2017-09-10] MEDS: THIAMINE HCL 100 MG TABLET (FP) PO SCH (21:38)
[2017-09-10] MEDS: MELATONIN 5 MG TABLETS PO PRN (21:38)
[2017-09-10] MEDS: traZODone HCL 50 MG TABLET (FP) PO SCH (21:38)
[2017-09-11] MEDS: CITALOPRAM HYDROBROMIDE 20 MG TABLET (FP) PO SCH (09:56)
[2017-09-11] MEDS: BUPRENORPHINE/NALOXONE 8 MG/2 MG FILM PACKET SL SCH (09:56)
[2017-09-11] MEDS: PRENATAL VITAMINS W/ FOLIC ACID TABLET (FP) PO SCH (09:56)
[2017-09-11] MEDS: NICOTINE 21 MG/24 HOURS TOPICAL PATCH TD SCH (09:56)
[2017-09-11] MEDS: THIAMINE HCL 100 MG TABLET (FP) PO SCH (22:03)
[2017-09-11] MEDS: traZODone HCL 50 MG TABLET (FP) PO SCH (22:03)
[2017-09-12] MEDS: NICOTINE 21 MG/24 HOURS TOPICAL PATCH TD SCH (10:50)
[2017-09-12] MEDS: CITALOPRAM HYDROBROMIDE 20 MG TABLET (FP) PO SCH (10:50)
[2017-09-12] MEDS: PRENATAL VITAMINS W/ FOLIC ACID TABLET (FP) PO SCH (10:50)
[2017-09-12] MEDS: BUPRENORPHINE/NALOXONE 8 MG/2 MG FILM PACKET SL SCH (10:51)
[2017-09-12] MEDS: THIAMINE HCL 100 MG TABLET (FP) PO SCH (21:59)
[2017-09-12] MEDS: traZODone HCL 50 MG TABLET (FP) PO SCH (21:59)
[2017-09-13] MEDS: BUPRENORPHINE/NALOXONE 8 MG/2 MG FILM PACKET SL SCH (10:35)
[2017-09-13] MEDS: CITALOPRAM HYDROBROMIDE 20 MG TABLET (FP) PO SCH (10:35)
[2017-09-13] MEDS: NICOTINE POLACRILEX 2 MG GUM BUC PRN (10:35)
[2017-09-13] MEDS: NICOTINE 21 MG/24 HOURS TOPICAL PATCH TD SCH (10:35)
[2017-09-13] MEDS: PRENATAL VITAMINS W/ FOLIC ACID TABLET (FP) PO SCH (10:35)
[2017-09-13] MEDS: THIAMINE HCL 100 MG TABLET (FP) PO SCH (22:05)
[2017-09-13] MEDS: traZODone HCL 50 MG TABLET (FP) PO SCH (22:05)
[2017-09-14] MEDS: PRENATAL VITAMINS W/ FOLIC ACID TABLET (FP) PO SCH (09:37)
[2017-09-14] MEDS: CITALOPRAM HYDROBROMIDE 20 MG TABLET (FP) PO SCH (09:37)
[2017-09-14] MEDS: BUPRENORPHINE/NALOXONE 8 MG/2 MG FILM PACKET SL SCH (09:37)
[2017-09-14] MEDS: NICOTINE 21 MG/24 HOURS TOPICAL PATCH TD SCH (09:37)
[2017-09-14] MEDS: THIAMINE HCL 100 MG TABLET (FP) PO SCH (21:52)
[2017-09-14] MEDS: traZODone HCL 50 MG TABLET (FP) PO SCH (21:52)
[2017-09-15] MEDS: NICOTINE 21 MG/24 HOURS TOPICAL PATCH TD SCH (10:27)
[2017-09-15] MEDS: CITALOPRAM HYDROBROMIDE 20 MG TABLET (FP) PO SCH (10:27)
[2017-09-15] MEDS: PRENATAL VITAMINS W/ FOLIC ACID TABLET (FP) PO SCH (10:28)
[2017-09-15] MEDS: BUPRENORPHINE/NALOXONE 8 MG/2 MG FILM PACKET SL SCH (10:28)
[2017-09-15] MEDS: THIAMINE HCL 100 MG TABLET (FP) PO SCH (21:48)
[2017-09-15] MEDS: traZODone HCL 50 MG TABLET (FP) PO SCH (21:48)
[2017-09-15] MEDS: MELATONIN 5 MG TABLETS PO PRN (21:48)
[2017-09-15] MEDS ORDERED: PT OWN MED DRAWER 7, Y5N ONE (22:07)
[2017-09-16] MEDS: CITALOPRAM HYDROBROMIDE 20 MG TABLET (FP) PO SCH (11:06)
[2017-09-16] MEDS: BUPRENORPHINE/NALOXONE 8 MG/2 MG FILM PACKET SL SCH (11:06)
[2017-09-16] MEDS: NICOTINE 21 MG/24 HOURS TOPICAL PATCH TD SCH (11:06)
[2017-09-16] MEDS: PRENATAL VITAMINS W/ FOLIC ACID TABLET (FP) PO SCH (11:06)
[2017-09-16] MEDS: THIAMINE HCL 100 MG TABLET (FP) PO SCH (21:41)
[2017-09-16] MEDS: MELATONIN 5 MG TABLETS PO PRN (21:41)
[2017-09-16] MEDS: traZODone HCL 50 MG TABLET (FP) PO SCH (21:41)
[2017-09-17] MEDS: CITALOPRAM HYDROBROMIDE 20 MG TABLET (FP) PO SCH (10:20)
[2017-09-17] MEDS: PRENATAL VITAMINS W/ FOLIC ACID TABLET (FP) PO SCH (10:20)
[2017-09-17] MEDS: NICOTINE 21 MG/24 HOURS TOPICAL PATCH TD SCH (10:20)
[2017-09-17] MEDS: BUPRENORPHINE/NALOXONE 8 MG/2 MG FILM PACKET SL SCH (10:21)
[2017-09-17] MEDS: traZODone HCL 50 MG TABLET (FP) PO SCH (21:50)
[2017-09-17] MEDS: THIAMINE HCL 100 MG TABLET (FP) PO SCH (21:50)
[2017-09-18] MEDS: NICOTINE 21 MG/24 HOURS TOPICAL PATCH TD SCH (10:30)
[2017-09-18] MEDS: BUPRENORPHINE/NALOXONE 8 MG/2 MG FILM PACKET SL SCH (10:31)
[2017-09-18] MEDS: CITALOPRAM HYDROBROMIDE 20 MG TABLET (FP) PO SCH (10:31)
[2017-09-18] MEDS: PRENATAL VITAMINS W/ FOLIC ACID TABLET (FP) PO SCH (10:31)
[2017-09-18] MEDS: THIAMINE HCL 100 MG TABLET (FP) PO SCH (21:47)
[2017-09-18] MEDS: traZODone HCL 50 MG TABLET (FP) PO SCH (21:48)
[2017-09-19] MEDS: BUPRENORPHINE/NALOXONE 8 MG/2 MG FILM PACKET SL SCH (10:52)
[2017-09-19] MEDS: NICOTINE 21 MG/24 HOURS TOPICAL PATCH TD SCH (10:52)
[2017-09-19] MEDS: CITALOPRAM HYDROBROMIDE 20 MG TABLET (FP) PO SCH (10:52)
[2017-09-19] MEDS: PRENATAL VITAMINS W/ FOLIC ACID TABLET (FP) PO SCH (10:52)
--- NOTE | 2017-09-19 13:32 | PN ---
[facility] Progress Note Note: Patient presents with c/o muscle spasms. Pain level 3-4/10. Vital Signs Temperature 97.9 F 09/19/17 07:33 Pulse Rate 66 09/19/17 07:33 Respiratory Rate 18 09/19/17 07:33 Blood Pressure 120/82 09/19/17 07:33 O2 Sat by Pulse Oximetry (%) Obj: General: alert and oriented x 3. In no acute distress. Skin: warm and dry GI: soft, no distention. Old mid-line surgical scar Ext: Full ROM, no edema A/P: Muscle spasms Will add flexeril 5mg tid prn and continue to monitor clincally.
[2017-09-19] MEDS: THIAMINE HCL 100 MG TABLET (FP) PO SCH (22:02)
[2017-09-19] MEDS: traZODone HCL 50 MG TABLET (FP) PO SCH (22:02)
[2017-09-20] MEDS: BUPRENORPHINE/NALOXONE 8 MG/2 MG FILM PACKET SL SCH (10:03)
[2017-09-20] MEDS: NICOTINE 21 MG/24 HOURS TOPICAL PATCH TD SCH (10:03)
[2017-09-20] MEDS: CITALOPRAM HYDROBROMIDE 20 MG TABLET (FP) PO SCH (10:03)
[2017-09-20] MEDS: PRENATAL VITAMINS W/ FOLIC ACID TABLET (FP) PO SCH (10:03)
[2017-09-20] MEDS: CYCLOBENZAPRINE HCL 5 MG TABLET PO PRN (10:04)
[2017-09-20] MEDS: THIAMINE HCL 100 MG TABLET (FP) PO SCH (22:05)
[2017-09-20] MEDS: traZODone HCL 50 MG TABLET (FP) PO SCH (22:05)
[2017-09-20] MEDS: MELATONIN 5 MG TABLETS PO PRN (22:05)
[2017-09-21] MEDS: PRENATAL VITAMINS W/ FOLIC ACID TABLET (FP) PO SCH (10:09)
[2017-09-21] MEDS: NICOTINE 21 MG/24 HOURS TOPICAL PATCH TD SCH (10:09)
[2017-09-21] MEDS: CITALOPRAM HYDROBROMIDE 20 MG TABLET (FP) PO SCH (10:09)
[2017-09-21] MEDS: BUPRENORPHINE/NALOXONE 8 MG/2 MG FILM PACKET SL SCH (10:09)
[2017-09-21] MEDS: traZODone HCL 50 MG TABLET (FP) PO SCH (21:42)
[2017-09-21] MEDS: THIAMINE HCL 100 MG TABLET (FP) PO SCH (21:42)
[2017-09-21] MEDS: MELATONIN 5 MG TABLETS PO PRN (21:42)
[2017-09-22] MEDS: BUPRENORPHINE/NALOXONE 8 MG/2 MG FILM PACKET SL SCH (11:13)
[2017-09-22] MEDS: PRENATAL VITAMINS W/ FOLIC ACID TABLET (FP) PO SCH (11:13)
[2017-09-22] MEDS: CITALOPRAM HYDROBROMIDE 20 MG TABLET (FP) PO SCH (11:13)
[2017-09-22] MEDS: NICOTINE 21 MG/24 HOURS TOPICAL PATCH TD SCH (11:15)
[2017-09-22] MEDS: CYCLOBENZAPRINE HCL 5 MG TABLET PO PRN (11:16)
[2017-09-22] MEDS: traZODone HCL 50 MG TABLET (FP) PO SCH (21:45)
[2017-09-22] MEDS: THIAMINE HCL 100 MG TABLET (FP) PO SCH (21:46)
[2017-09-22] MEDS: MELATONIN 5 MG TABLETS PO PRN (21:47)
[2017-09-23] MEDS: PRENATAL VITAMINS W/ FOLIC ACID TABLET (FP) PO SCH (09:47)
[2017-09-23] MEDS: CITALOPRAM HYDROBROMIDE 20 MG TABLET (FP) PO SCH (09:48)
[2017-09-23] MEDS: NICOTINE 21 MG/24 HOURS TOPICAL PATCH TD SCH (09:48)
[2017-09-23] MEDS: BUPRENORPHINE/NALOXONE 8 MG/2 MG FILM PACKET SL SCH (09:48)
[2017-09-23] MEDS: THIAMINE HCL 100 MG TABLET (FP) PO SCH (21:55)
[2017-09-23] MEDS: traZODone HCL 50 MG TABLET (FP) PO SCH (21:55)
[2017-09-23] MEDS: MELATONIN 5 MG TABLETS PO PRN (21:56)
[2017-09-24] MEDS: NICOTINE 21 MG/24 HOURS TOPICAL PATCH TD SCH (10:39)
[2017-09-24] MEDS: BUPRENORPHINE/NALOXONE 8 MG/2 MG FILM PACKET SL SCH (10:39)
[2017-09-24] MEDS: CITALOPRAM HYDROBROMIDE 20 MG TABLET (FP) PO SCH (10:39)
[2017-09-24] MEDS: PRENATAL VITAMINS W/ FOLIC ACID TABLET (FP) PO SCH (10:40)
[2017-09-24] MEDS: THIAMINE HCL 100 MG TABLET (FP) PO SCH (21:56)
[2017-09-24] MEDS: traZODone HCL 50 MG TABLET (FP) PO SCH (21:56)
[2017-09-24] MEDS: MELATONIN 5 MG TABLETS PO PRN (21:56)
[2017-09-25] MEDS: BUPRENORPHINE/NALOXONE 8 MG/2 MG FILM PACKET SL SCH (10:34)
[2017-09-25] MEDS: PRENATAL VITAMINS W/ FOLIC ACID TABLET (FP) PO SCH (10:34)
[2017-09-25] MEDS: CITALOPRAM HYDROBROMIDE 20 MG TABLET (FP) PO SCH (10:34)
[2017-09-25] MEDS: NICOTINE 21 MG/24 HOURS TOPICAL PATCH TD SCH (10:34)
[2017-09-25] MEDS: traZODone HCL 50 MG TABLET (FP) PO SCH (21:46)
[2017-09-25] MEDS: THIAMINE HCL 100 MG TABLET (FP) PO SCH (21:46)
[2017-09-25] MEDS: MELATONIN 5 MG TABLETS PO PRN (21:46)
[2017-09-26] MEDS: NICOTINE 21 MG/24 HOURS TOPICAL PATCH TD SCH (10:27)
[2017-09-26] MEDS: PRENATAL VITAMINS W/ FOLIC ACID TABLET (FP) PO SCH (10:28)
[2017-09-26] MEDS: BUPRENORPHINE/NALOXONE 8 MG/2 MG FILM PACKET SL SCH (10:28)
[2017-09-26] MEDS: CITALOPRAM HYDROBROMIDE 20 MG TABLET (FP) PO SCH (10:28)
[2017-09-26] MEDS: traZODone HCL 50 MG TABLET (FP) PO SCH (21:39)
[2017-09-26] MEDS: MELATONIN 5 MG TABLETS PO PRN (21:39)
[2017-09-26] MEDS: THIAMINE HCL 100 MG TABLET (FP) PO SCH (21:39)
[2017-09-26] MEDS: NICOTINE POLACRILEX 2 MG GUM BUC PRN (21:40)
[2017-09-27] MEDS: NICOTINE 21 MG/24 HOURS TOPICAL PATCH TD SCH (10:28)
[2017-09-27] MEDS: PRENATAL VITAMINS W/ FOLIC ACID TABLET (FP) PO SCH (10:28)
[2017-09-27] MEDS: CITALOPRAM HYDROBROMIDE 20 MG TABLET (FP) PO SCH (10:28)
[2017-09-27] MEDS: BUPRENORPHINE/NALOXONE 8 MG/2 MG FILM PACKET SL SCH (10:28)
[2017-09-27] MEDS: traZODone HCL 50 MG TABLET (FP) PO SCH (22:16)
[2017-09-27] MEDS: MELATONIN 5 MG TABLETS PO PRN (22:16)
[2017-09-27] MEDS: THIAMINE HCL 100 MG TABLET (FP) PO SCH (22:16)
[2017-09-28] MEDS: PRENATAL VITAMINS W/ FOLIC ACID TABLET (FP) PO SCH (10:16)
[2017-09-28] MEDS: CITALOPRAM HYDROBROMIDE 20 MG TABLET (FP) PO SCH (10:16)
[2017-09-28] MEDS: BUPRENORPHINE/NALOXONE 8 MG/2 MG FILM PACKET SL SCH (10:16)
[2017-09-28] MEDS: NICOTINE 21 MG/24 HOURS TOPICAL PATCH TD SCH (10:16)
[2017-09-28] MEDS: traZODone HCL 50 MG TABLET (FP) PO SCH (21:55)
[2017-09-28] MEDS: THIAMINE HCL 100 MG TABLET (FP) PO SCH (21:55)
[2017-09-28] MEDS: MELATONIN 5 MG TABLETS PO PRN (21:56)
[2017-09-29] MEDS: BUPRENORPHINE/NALOXONE 8 MG/2 MG FILM PACKET SL SCH (10:23)
[2017-09-29] MEDS: NICOTINE 21 MG/24 HOURS TOPICAL PATCH TD SCH (10:23)
[2017-09-29] MEDS: CITALOPRAM HYDROBROMIDE 20 MG TABLET (FP) PO SCH (10:24)
[2017-09-29] MEDS: PRENATAL VITAMINS W/ FOLIC ACID TABLET (FP) PO SCH (10:24)
[2017-09-29] MEDS: traZODone HCL 50 MG TABLET (FP) PO SCH (21:57)
[2017-09-29] MEDS: THIAMINE HCL 100 MG TABLET (FP) PO SCH (21:57)
[2017-09-29] MEDS: MELATONIN 5 MG TABLETS PO PRN (21:58)
[2017-09-30 07:00] VITALS: TEMP 98
[2017-09-30] MEDS: CITALOPRAM HYDROBROMIDE 20 MG TABLET (FP) PO SCH (10:38)
[2017-09-30] MEDS: PRENATAL VITAMINS W/ FOLIC ACID TABLET (FP) PO SCH (10:38)
[2017-09-30] MEDS: BUPRENORPHINE/NALOXONE 8 MG/2 MG FILM PACKET SL SCH (10:38)
[2017-09-30] MEDS: NICOTINE 21 MG/24 HOURS TOPICAL PATCH TD SCH (10:38)
--- NOTE | 2017-09-30 14:25 | PN ---
[facility] Progress Note Note: Patient will be discharged tomorrow 10/01/17. On suboxone maintenance therapy 8mg QD. Patient will continue her aftercare at [facility] on .
[2017-09-30] MEDS: traZODone HCL 50 MG TABLET (FP) PO SCH (22:01)
[2017-09-30] MEDS: THIAMINE HCL 100 MG TABLET (FP) PO SCH (22:01)
[2017-09-30] MEDS: MELATONIN 5 MG TABLETS PO PRN (22:01)
[2017-10-01 07:26] VITALS: BP 92/64; PULSE 61
[2017-10-01] MEDS ORDERED: PT OWN MED DRAWER 7, Y5N ONE (08:50)
[2017-10-01] MEDS: NICOTINE 21 MG/24 HOURS TOPICAL PATCH TD SCH (09:02)
[2017-10-01] MEDS: PRENATAL VITAMINS W/ FOLIC ACID TABLET (FP) PO SCH (09:02)
[2017-10-01] MEDS: BUPRENORPHINE/NALOXONE 8 MG/2 MG FILM PACKET SL SCH (09:02)
[2017-10-01] MEDS: CITALOPRAM HYDROBROMIDE 20 MG TABLET (FP) PO SCH (09:02)
--- NOTE | 2017-10-01 09:31 | PN ---
Psychiatric Progress Note Vital Signs: Vital Signs Period Temp Pulse Resp BP Sys/Crabtree Pulse Ox Last 24 Hr 98.0 F 61 16-18 92/64 Date of Session: 10/01/17 Chief Complaint:: Discharge visit HPI: Patient addressed Alcohol,Opioid and Cocaine dependence comorbid with PTSD, Substance induced mood disorder. ROS: Significant for BA. Current Medications: Active Medications Generic Name Dose Route Start Last Admin Trade Name Freq PRN Reason Stop Dose Admin Acetaminophen 650 mg 09/03/17 12:23 Tylenol - PO Q4H PRN FEVER Al Hydroxide/Mg Hydroxide 30 ml 09/03/17 12:23 Mylanta Oral Suspension - PO Q6H PRN DYSPEPSIA Albuterol Sulfate 2 puff 09/03/17 12:26 Ventolin Hfa Inhaler - IH Q4H PRN SHORT OF BREATH/WHEEZING Buprenorphine/Naloxone 1 each 09/30/17 10:00 10/01/17 09:02 Suboxone 8mg/2mg Sl Film - SL 10/07/17 09:59 1 each DAILY ESSIE Administration Citalopram Hydrobromide 20 mg 09/05/17 13:00 10/01/17 09:02 Celexa - PO 20 mg DAILY ESSIE Administration Colloidal Oatmeal 1 applic 09/08/17 10:20 09/10/17 10:30 Aveeno Soap - TP 1 bar DAILY PRN Administration HYGEINE Cyclobenzaprine HCl 5 mg 09/19/17 13:29 09/22/17 11:16 Cyclobenzaprine Hcl PO 5 mg TID PRN Administration MUSCLE SPASMS Eucalyptus/Menthol/Phenol/Sorbitol 1 each 09/03/17 12:23 09/06/17 06:57 Cepastat Lozenge - MM 1 each Q4H PRN Administration SORE THROAT Guaifenesin 10 ml 09/03/17 12:23 Robitussin Dm - PO Q6H PRN COUGH Hydroxyzine Pamoate 50 mg 09/03/17 12:23 Vistaril - PO Q4H PRN AGITATION Ibuprofen 400 mg 09/03/17 12:23 09/04/17 06:42 Motrin - PO 400 mg Q6H PRN Administration Pain Level 4-6 Loperamide HCl 4 mg 09/03/17 12:23 Imodium - PO Q6H PRN DIARRHEA Magnesium Citrate 300 ml 09/03/17 12:23 Citroma - PO Q48H PRN CONSTIPATION Magnesium Hydroxide 30 ml 09/03/17 12:23 Milk Of Magnesia - PO DAILY PRN CONSTIPATION Melatonin 5 mg 09/03/17 22:00 09/30/17 22:01 Melatonin PO 5 mg HS PRN Administration INSOMNIA Nicotine 21 mg 09/04/17 10:00 10/01/17 09:02 Nicoderm Patch - TD Not Given DAILY ESSIE Nicotine Polacrilex 2 mg 09/03/17 12:26 09/26/17 21:40 Nicorette Gum - BUC 2 mg Q2H PRN Administration NICOTINE REPLACEMENT RX Multivit/Folic Acid/Iron 1 tab 09/04/17 10:00 10/01/17 09:02 Vitamins (Sjr) - PO 1 tab DAILY ESSIE Administration Pseudoephedrine/Triprolidine 1 combo 09/03/17 12:23 Actifed - PO TID PRN NASAL CONGESTION Thiamine HCl 100 mg 09/03/17 22:00 09/30/17 22:01 Vitamin B1 - PO 100 mg HS ESSIE Administration Trazodone HCl 50 mg 09/05/17 22:00 09/30/17 22:01 Desyrel - PO 50 mg HS ESSIE Administration Current Side Effect: No Lab tests ordered: No Lab tests reviewed: Yes Provider note:: patient completed this program today.she has met her treatment goals and will continue to address her issues on outpatient basis at [facility].Patient reports that Trazodone 50 mg po hs helps her to cope with sleeping difficulties,depressed mood.Script for 30 days provided. Supportive therapy provided focusing on coping skills,support utilization to maintain recovery. patient is stable for discharge today. Total face to face time:: 30 Mental Status Exam - Mental Status Exam Alert and Oriented to: Time, Place, Person Cognitive Function: Grossly Intact Patient Appearance: Well Groomed Mood: Euthymic Affect: Appropriate, Mood Congruent Patient Behavior: Cooperative Speech Pattern: Clear Voice Loudness: Normal Thought Process: Goal Oriented Thought Disorder: Not Present Hallucinations: Denies Suicidal Ideation: Denies Homicidal Ideation: Denies Insight/Judgement: Fair Sleep: Fair Appetite: Fair Muscle strength/Tone: Normal Gait/Station: Normal Psychiatric Treatment Plan - Problem List (6) Asthma Qualifiers: Asthma severity: mild Asthma persistence: intermittent Asthma complication type: with status asthmaticus Qualified Code(s): J45.22 - Mild intermittent asthma with status asthmaticus (7) PTSD (post-traumatic stress disorder) Comment: As per self-report and existing records.
== END 2017-10-01 09:32 | disposition home or self-care (01) | DRG 772 ==
LOC: YASAS 11:09 → Y3E 11:11
PROVIDERS: ADMIT Psychiatry & Neurology Psychiatry; ATTEND Psychiatry & Neurology Psychiatry
PROC: HZ42ZZZ Group Counseling for Substance Abuse Treatment, Cognitive-Behavioral (ICD-10-PCS; principal; 2017-09-03)
DX: F11.20 Opioid dependence, uncomplicated (principal); F10.20 Alcohol dependence, uncomplicated; F14.20 Cocaine dependence, uncomplicated; F17.210 Nicotine dependence, cigarettes, uncomplicated; F19.24 Other psychoactive substance dependence with psychoactive substance-induced mood disorder; F43.10 Post-traumatic stress disorder, unspecified; J45.22 Mild intermittent asthma with status asthmaticus; M62.838 Other muscle spasm

== ENCOUNTER 2019-12-31 15:05 | Inpatient (IN) | payer OTHER ==
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
[2019-12-31] MEDS ORDERED: BISMUTH SUBSALICYLATE 524 MG/30 ML UD PO PRN (18:11)
[2019-12-31] MEDS ORDERED: MENTHOL/PHENOL 1 EACH UD MM PRN (18:11)
[2019-12-31] MEDS ORDERED: ACETAMINOPHEN 325 MG TABLET (FP) PO PRN ×2 (18:11)
[2019-12-31] MEDS ORDERED: hydrOXYzine PAMOATE 25 MG CAPSULE (FP) PO PRN (18:11)
[2019-12-31] MEDS ORDERED: IBUPROFEN 400 MG TABLET (FP) PO PRN (18:11)
[2019-12-31] MEDS ORDERED: MAGNESIUM HYDROX 2400MG/30ML ORAL SUSPENSION 30 ML CUP PO PRN (18:11)
[2019-12-31] MEDS ORDERED: MAG HYDROX/AL HYDROX/SIMETH 30 ML UNIT-DOSE CUP PO PRN (18:11)
[2019-12-31] MEDS ORDERED: MAGNESIUM CITRATE 300 ML BOTTLE PO PRN (18:11)
[2019-12-31] MEDS ORDERED: chlordiazePOXIDE HCL 25 MG CAPSULE PO PRN (18:15)
[2019-12-31] MEDS ORDERED: ONDANSETRON *ODT* 4 MG TABLET SL ONE (19:00)
[2019-12-31 19:22] VITALS: BMI 16.6
[2019-12-31] MEDS ORDERED: PNEUMOC 13-VAL CONJ-DIP CRM/PF 0.5 ML DISP.SYRIN IM ONE (19:25)
[2019-12-31] MEDS: MELATONIN 5 MG TABLETS PO SCH (22:30)
[2019-12-31] MEDS: THIAMINE HCL 100 MG TABLET (FP) PO SCH (22:30)
[2019-12-31] MEDS: chlordiazePOXIDE HCL 25 MG CAPSULE PO SCH (22:32)
[2020-01-01] MEDS: chlordiazePOXIDE HCL 25 MG CAPSULE PO SCH ×4 (06:16→22:14)
--- NOTE | 2020-01-01 10:11 | EKG ---
Test Reason : Blood Pressure : / mmHG Vent. Rate : 059 BPM Atrial Rate : 059 BPM P-R Int : 162 ms QRS Dur : 084 ms QT Int : 436 ms P-R-T Axes : 058 061 049 degrees QTc Int : 431 ms SINUS BRADYCARDIA OTHERWISE NORMAL ECG WHEN COMPARED WITH ECG OF 29-AUG-2017 23:16, NO SIGNIFICANT CHANGE WAS FOUND Confirmed by SUNNY UMANA MD ([id number]) on 01/01/2020 10:10:29 AM Referred By: Confirmed By:SUNNY UMANA MD
[2020-01-01] MEDS: BUPRENORPHINE/NALOXONE 8 MG/2 MG FILM PACKET SL SCH ×2 (10:30→18:52)
[2020-01-01] MEDS: PRENATAL VITAMINS W/ FOLIC ACID TABLET (FP) PO SCH (10:30)
[2020-01-01] MEDS: NICOTINE 14 MG/24 HOURS TOPICAL PATCH TD SCH (10:30)
[2020-01-01] MEDS: NICOTINE POLACRILEX 2 MG GUM BUC PRN ×2 (10:33→13:34)
--- NOTE | 2020-01-01 10:57 | PN ---
S CIWA - CIWA Score Nausea/Vomitin-No Nausea/No Vomiting Muscle Tremors: 2 Anxiety: 3 Agitation: 0-Normal Activity Paroxysmal Sweats: 3 Orientation: 0-Oriented Tacttile Disturbances: 0-None Auditory Disturbances: 0-None Visual Disturbances: 0-None Headache: 2-Mild CIWA-Ar Total Score: 10 [facility] Progress Note (SOAP) Subjective: c/o anxiety, shakes, sweats, and headache. Objective: 01/01/20 10:57 Vital Signs 01/01/20 01/01/20 06:15 08:30 Temperature 96.7 F L 97.1 F L Pulse Rate 71 72 Respiratory 18 18 Rate Blood Pressure 117/73 100/70 O2 Sat by Pulse 98 Oximetry (%) Labs pending. Assessment: 01/01/20 10:57 AOX3, in no acute respiratory distress. Full ROM, ambulating in the unit. Withdrawal symptoms. Plan: continue detox.
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
[2020-01-01] MEDS ORDERED: PNEUMOCOCCAL 23 VACCINE 0.5 ML VIAL IM ONE (12:00)
[2020-01-01] MEDS ORDERED: PNEUMOC 13-VAL CONJ-DIP CRM/PF 0.5 ML DISP.SYRIN IM ONE (12:00)
[2020-01-01 12:25] LABS: HEMATOCRIT 40.8 % (32.4-45.2); HEMOGLOBIN 13.1 GM/dL (10.7-15.3); MCH 30.1 pg (25.7-33.7); MCHC 32.1 g/dl (32.0-36.0); MEAN CELL VOLUME 93.6 fl (80-96); MEAN PLT VOLUME 9.5 fl (7.5-11.1); PLATELET COUNT 232 K/MM3 (134-434); RBC 4.36 M/mm3 (3.60-5.2); RDW 13.7 % (11.6-15.6); WHITE BLOOD COUNT 5.6 K/mm3 (4.0-10.0)
[2020-01-01 12:41] LABS: ALBUMIN 3.4 g/dl (3.4-5.0); BILIRUBIN,TOTAL 0.4 mg/dL (0.2-1); CALCIUM 9.2 mg/dL (8.5-10.1); CREATININE 0.9 mg/dL (0.55-1.3); POTASSIUM 4.4 mmol/L (3.5-5.1); TOT PROT 6.4 g/dl (6.4-8.2)
[2020-01-01] MEDS: METHOCARBAMOL 500 MG TABLET PO PRN (15:47)
[2020-01-01] MEDS: ALBUTEROL SO4 HFA INHALER IH PRN (18:51)
[2020-01-01] MEDS: THIAMINE HCL 100 MG TABLET (FP) PO SCH (22:14)
[2020-01-01] MEDS: traZODone HCL 50 MG TABLET (FP) PO SCH (22:15)
[2020-01-01] MEDS: MELATONIN 5 MG TABLETS PO SCH (22:15)
[2020-01-02] MEDS: ALBUTEROL SO4 HFA INHALER IH PRN ×3 (04:16→23:05)
[2020-01-02] MEDS: chlordiazePOXIDE HCL 25 MG CAPSULE PO SCH ×4 (06:49→23:24)
[2020-01-02] MEDS: CITALOPRAM HYDROBROMIDE 10 MG TABLET PO SCH (10:31)
[2020-01-02] MEDS: BUPRENORPHINE/NALOXONE 8 MG/2 MG FILM PACKET SL SCH ×2 (10:32→19:09)
[2020-01-02] MEDS: NICOTINE 14 MG/24 HOURS TOPICAL PATCH TD SCH (10:32)
[2020-01-02] MEDS: PRENATAL VITAMINS W/ FOLIC ACID TABLET (FP) PO SCH (10:32)
[2020-01-02] MEDS: METHOCARBAMOL 500 MG TABLET PO PRN (10:33)
[2020-01-02] MEDS: NICOTINE POLACRILEX 2 MG GUM BUC PRN (10:35)
--- NOTE | 2020-01-02 13:06 | PN ---
S CIWA - CIWA Score Nausea/Vomitin-Mild Nausea/No Vomiting Muscle Tremors: 2 Anxiety: 2 Agitation: 0-Normal Activity Paroxysmal Sweats: No Perspiration Orientation: 0-Oriented Tacttile Disturbances: 0-None Auditory Disturbances: 0-None Visual Disturbances: 2-Mild Sensitivity Headache: 0-None Present CIWA-Ar Total Score: 7 BHS Progress Note (SOAP) Subjective: 54 years old female was admitted on 12/31/19 for alcohol withdrawal sx management treating with librium detox regiment received suboxone 8-2mg sl twice daily feels ok less tremor bmi 16.6 continue ensure supplement Objective: 01/02/20 13:06 Vital Signs - 24 hr 01/01/20 01/01/20 01/02/20 16:20 20:29 06:39 Temperature 97.8 F 98.0 F 97.9 F Pulse Rate 82 92 H 78 Respiratory 18 18 18 Rate Blood Pressure 119/82 114/77 106/71 O2 Sat by Pulse 97 100 Oximetry (%) 01/02/20 09:00 Temperature 97.9 F Pulse Rate 90 Respiratory 18 Rate Blood Pressure 106/72 O2 Sat by Pulse Oximetry (%) Laboratory Tests 01/01/20 01/01/20 01/01/20 07:50 07:50 07:50 WBC 5.6 RBC 4.36 Hgb 13.1 Hct 40.8 MCV 93.6 MCH 30.1 MCHC 32.1 RDW 13.7 Plt Count 232 MPV 9.5 Sodium 142 Potassium 4.4 Chloride 108 H Carbon Dioxide 31 Anion Gap 3 L BUN 15.0 Creatinine 0.9 Est GFR (CKD-EPI)AfAm 85.20 Est GFR (CKD-EPI)NonAf 73.51 Random Glucose 80 Calcium 9.2 Total Bilirubin 0.4 AST 16 ALT 18 Alkaline Phosphatase 79 Total Protein 6.4 Albumin 3.4 Syphilis Serology Non-reactive HIV Ag/Ab Combo Qual 01/01/20 07:50 WBC RBC Hgb Hct MCV MCH MCHC RDW Plt Count MPV Sodium Potassium Chloride Carbon Dioxide Anion Gap BUN Creatinine Est GFR (CKD-EPI)AfAm Est GFR (CKD-EPI)NonAf Random Glucose Calcium Total Bilirubin AST ALT Alkaline Phosphatase Total Protein Albumin Syphilis Serology HIV Ag/Ab Combo Qual Negative 01/02/20 13:07 covid pending Assessment: 01/02/20 13:07 alcohol withdrawal Plan: librium regiment
[2020-01-02] MEDS: THIAMINE HCL 100 MG TABLET (FP) PO SCH (23:03)
[2020-01-02] MEDS: traZODone HCL 50 MG TABLET (FP) PO SCH (23:04)
[2020-01-02] MEDS: MELATONIN 5 MG TABLETS PO SCH (23:25)
[2020-01-03] MEDS ORDERED: chlordiazePOXIDE HCL 10 MG CAPSULE PO PRN
[2020-01-03] MEDS: chlordiazePOXIDE HCL 10 MG CAPSULE PO SCH ×4 (06:19→23:04)
--- NOTE | 2020-01-03 09:09 | PN ---
S CIWA - CIWA Score Nausea/Vomitin-Mild Nausea/No Vomiting Muscle Tremors: 1-None Visible, but [place] Anxiety: 1-Mildly Anxious Agitation: 0-Normal Activity Paroxysmal Sweats: 1-Minimal Palms Moist Orientation: 0-Oriented Tacttile Disturbances: 1-Very Mild Itch/Numbness Auditory Disturbances: 0-None Visual Disturbances: 0-None Headache: 0-None Present CIWA-Ar Total Score: 5 BHS Progress Note (SOAP) Subjective: 54 years old female was admitted on 12/31/19 for alcohol withdrawal sx management treating with librium detox regiment ms camejo requests to be see by a psychiatrist for seroquel psychiatry referral bmi 16.6 continue ensure tid encourage ms camejo to consider the next important step for alcohol abuse recovery at [facility] Objective: 01/03/20 09:13 Vital Signs - 24 hr 01/02/20 01/02/20 01/02/20 12:47 16:51 20:53 Temperature 97.7 F 97.7 F 97.9 F Pulse Rate 87 86 88 Respiratory 16 18 18 Rate Blood Pressure 110/74 118/85 122/84 O2 Sat by Pulse 95 95 Oximetry (%) 01/03/20 06:03 Temperature 97.9 F Pulse Rate 89 Respiratory 18 Rate Blood Pressure 120/83 O2 Sat by Pulse 96 Oximetry (%) Laboratory Tests 12/31/19 12/31/19 01/01/20 19:00 19:31 07:50 WBC RBC Hgb Hct MCV MCH MCHC RDW Plt Count MPV Sodium Potassium Chloride Carbon Dioxide Anion Gap BUN Creatinine Est GFR (CKD-EPI)AfAm Est GFR (CKD-EPI)NonAf Random Glucose Calcium Total Bilirubin AST ALT Alkaline Phosphatase Total Protein Albumin POC Urine HCG, Qual Negative Syphilis Serology Non-reactive COVID-19 ([facility]IA) Not detected HIV Ag/Ab Combo Qual 01/01/20 01/01/20 01/01/20 07:50 07:50 07:50 WBC 5.6 RBC 4.36 Hgb 13.1 Hct 40.8 MCV 93.6 MCH 30.1 MCHC 32.1 RDW 13.7 Plt Count 232 MPV 9.5 Sodium 142 Potassium 4.4 Chloride 108 H Carbon Dioxide 31 Anion Gap 3 L BUN 15.0 Creatinine 0.9 Est GFR (CKD-EPI)AfAm 85.20 Est GFR (CKD-EPI)NonAf 73.51 Random Glucose 80 Calcium 9.2 Total Bilirubin 0.4 AST 16 ALT 18 Alkaline Phosphatase 79 Total Protein 6.4 Albumin 3.4 POC Urine HCG, Qual Syphilis Serology COVID-19 ([facility]IA) HIV Ag/Ab Combo Qual Negative lab noted Assessment: 01/03/20 09:13 alcohol withdrawal Plan: librium regiment
[2020-01-03] MEDS: PRENATAL VITAMINS W/ FOLIC ACID TABLET (FP) PO SCH (10:28)
[2020-01-03] MEDS: BUPRENORPHINE/NALOXONE 8 MG/2 MG FILM PACKET SL SCH ×2 (10:28→19:07)
[2020-01-03] MEDS: NICOTINE 14 MG/24 HOURS TOPICAL PATCH TD SCH (10:28)
[2020-01-03] MEDS: CITALOPRAM HYDROBROMIDE 10 MG TABLET PO SCH (10:28)
[2020-01-03] MEDS: NICOTINE POLACRILEX 2 MG GUM BUC PRN (10:30)
--- NOTE | 2020-01-03 13:07 | PN ---
Psychiatric Progress Note Vital Signs: Vital Signs Period Temp Pulse Resp BP Sys/[place] Pulse Ox Last 24 Hr 97.4 F-97.9 F 73-89 16-18 118-122/69-85 95-96 Date of Session: 01/03/20 Chief Complaint:: " I need my seroquel at night." HPI: No acute problem. Patient requests to see the psychiatrist for the addition of quetiapine to the medication regimen. Reason : insomnia. ROS: Unremarkable. Current Medications: Active Medications Generic Name Dose Route Start Last Admin Trade Name Freq PRN Reason Stop Dose Admin Acetaminophen 650 mg 12/31/19 18:11 01/02/20 23:23 Tylenol - PO 650 mg Q6H PRN Administration PAIN LEVEL 4 - 6 Acetaminophen 650 mg 12/31/19 18:11 Tylenol - PO Q6H PRN FEVER Al Hydroxide/Mg Hydroxide 30 ml 12/31/19 18:11 Mylanta Oral Suspension - PO Q6H PRN DYSPEPSIA Albuterol Sulfate 2 puff 12/31/19 18:14 01/02/20 23:05 Ventolin Hfa Inhaler - IH 2 puff Q4H PRN Administration ASTHMA Bismuth Subsalicylate 524 mg 12/31/19 18:11 Pepto-Bismol - PO Q1H PRN DIARRHEA Buprenorphine/Naloxone 1 each 01/01/20 10:00 01/03/20 10:28 Suboxone 8 Mg/2 Mg Film Packet SL 1 each BID@1000,1800 ESSIE Administration Chlordiazepoxide HCl 10 mg 01/03/20 05:00 01/03/20 10:28 Librium - PO 01/03/20 23:01 10 mg [id number] ESSIE Administration Chlordiazepoxide HCl 10 mg 01/04/20 05:00 Librium - PO 01/04/20 17:01 Q12H ESSIE Chlordiazepoxide HCl 10 mg 01/03/20 00:00 Librium - PO 01/04/20 00:00 Q4H PRN WITHDRAWAL(CONT SUBST) Chlordiazepoxide HCl 10 mg 01/05/20 05:00 Librium - PO 01/05/20 05:01 ONCE@0500 ONE Citalopram Hydrobromide 10 mg 01/02/20 10:00 01/03/20 10:28 Celexa - PO 10 mg DAILY ESSIE Administration Eucalyptus/Menthol/Phenol/Sorbitol 1 each 12/31/19 18:11 Cepastat Lozenge - MM 01/06/20 18:11 Q4H PRN SORE THROAT Hydroxyzine Pamoate 25 mg 12/31/19 18:11 Vistaril - PO 01/06/20 18:13 Q4HWA PRN ANXIETY Ibuprofen 400 mg 12/31/19 18:11 12/31/19 20:08 Motrin - PO 400 mg Q6H PRN Administration PAIN LEVEL 1 - 3 Magnesium Citrate 300 ml 12/31/19 18:11 Citroma - PO Q48H PRN CONSTIPATION Magnesium Hydroxide 30 ml 12/31/19 18:11 Milk Of Magnesia - PO PRN PRN CONSTIPATION Melatonin 5 mg 12/31/19 22:00 01/02/20 23:25 Melatonin PO Not Given HS ESSIE Methocarbamol 500 mg 12/31/19 18:11 01/02/20 10:33 Robaxin - PO 01/06/20 18:11 500 mg Q6H PRN Administration MUSCLE SPASMS Nicotine 14 mg 01/01/20 10:00 01/03/20 10:28 Nicoderm Patch - TD 14 mg DAILY ESSIE Administration Nicotine Polacrilex 2 mg 12/31/19 18:11 01/03/20 10:30 Nicorette Gum - BUC 2 mg Q2H PRN Administration NICOTINE REPLACEMENT RX Multivit/Folic Acid/Iron 1 tab 01/01/20 10:00 01/03/20 10:28 Vitamins (Sjr) - PO 1 tab DAILY ESSIE Administration Thiamine HCl 100 mg 12/31/19 22:00 01/02/20 23:03 Vitamin B1 - PO 100 mg HS ESSIE Administration Trazodone HCl 50 mg 01/01/20 22:00 01/02/20 23:04 Desyrel - PO 50 mg HS ESSIE Administration Medication(s) Change(s): Seroquel 50 mg po hs. Ordered. Side effects/benefits discussed with the patient. Consent (verbal) granted. Current Side Effect: No Lab tests ordered: No Lab tests reviewed: Yes Provider note:: Chart reviewed. Patient seen. Complaint of insomnia and request for seroquel are validated. Hospital course is unremarkable otherwise. Patient is visible on the unit, ambulatory and sociable. Stable mental status. Total face to face time:: 25 Mental Status Exam - Mental Status Exam Alert and Oriented to: Time, Place, Person Cognitive Function: Good Patient Appearance: Well Groomed Mood: Hopeful, Euthymic Affect: Appropriate, Normal Range Patient Behavior: Appropriate, Cooperative Speech Pattern: Clear, Appropriate Voice Loudness: Normal Thought Process: Intact, Goal Oriented Thought Disorder: Not Present Hallucinations: Denies Suicidal Ideation: Denies Homicidal Ideation: Denies Insight/Judgement: Fair Sleep: Poorly, Difficulty falling asleep Appetite: Good Gait/Station: Normal Psychiatric Treatment Plan - Problem List (1) Alcohol dependence with uncomplicated withdrawal Current Visit: Yes Comment: . (2) Opioid dependence on agonist therapy Current Visit: Yes Comment: . (3) Cocaine dependence Current Visit: Yes Qualifiers: Substance use status: uncomplicated Qualified Code(s): F14.20 - Cocaine dependence, uncomplicated Comment: . (4) Nicotine dependence Current Visit: Yes Qualifiers: Nicotine product type: cigarettes Substance use status: uncomplicated Qualified Code(s): F17.210 - Nicotine dependence, cigarettes, uncomplicated Comment: . (5) Drug-induced mood disorder Current Visit: Yes Comment: . (6) History of posttraumatic stress disorder (PTSD) Current Visit: Yes Comment: . (7) History of depression Current Visit: Yes Comment: . (8) Insomnia Current Visit: Yes Comment: .
[2020-01-03] MEDS: ALBUTEROL SO4 HFA INHALER IH PRN (15:52)
[2020-01-03] MEDS: traZODone HCL 50 MG TABLET (FP) PO SCH (23:04)
[2020-01-03] MEDS: THIAMINE HCL 100 MG TABLET (FP) PO SCH (23:04)
[2020-01-03] MEDS: QUEtiapine FUMARATE 50 MG TABLET PO SCH (23:04)
[2020-01-03] MEDS: MELATONIN 5 MG TABLETS PO SCH (23:05)
[2020-01-04] MEDS: chlordiazePOXIDE HCL 10 MG CAPSULE PO SCH ×2 (05:46→17:48)
[2020-01-04] MEDS: ALBUTEROL SO4 HFA INHALER IH PRN ×2 (05:47→15:36)
--- NOTE | 2020-01-04 09:03 | PN ---
S CIWA - CIWA Score Nausea/Vomitin-No Nausea/No Vomiting Muscle Tremors: 1-None Visible, but [place] Anxiety: 1-Mildly Anxious Agitation: 0-Normal Activity Paroxysmal Sweats: No Perspiration Orientation: 0-Oriented Tacttile Disturbances: 0-None Auditory Disturbances: 0-None Visual Disturbances: 1-Very Mild Sensitivity Headache: 0-None Present CIWA-Ar Total Score: 3 BHS Progress Note (SOAP) Subjective: 54 years old female was admitted on 12/31/19 for alcohol withdrawal sx management treating with librium detox regiment feels better today ms camejo prefers returning to suboxone maintenance program for behavior and psychosocial therapies for alcohol abuse treatment Objective: 01/04/20 09:02 Vital Signs - 24 hr 01/03/20 01/03/20 01/03/20 12:45 16:44 21:44 Temperature 97.4 F L 97.7 F 97.7 F Pulse Rate 64 88 93 H Respiratory 16 16 18 Rate Blood Pressure 126/76 112/78 125/84 O2 Sat by Pulse 99 99 99 Oximetry (%) 01/04/20 06:38 Temperature 97.8 F Pulse Rate 55 L Respiratory 18 Rate Blood Pressure 127/83 O2 Sat by Pulse 99 Oximetry (%) Laboratory Tests 12/31/19 12/31/19 01/01/20 19:00 19:31 07:50 WBC RBC Hgb Hct MCV MCH MCHC RDW Plt Count MPV Sodium Potassium Chloride Carbon Dioxide Anion Gap BUN Creatinine Est GFR (CKD-EPI)AfAm Est GFR (CKD-EPI)NonAf Random Glucose Calcium Total Bilirubin AST ALT Alkaline Phosphatase Total Protein Albumin POC Urine HCG, Qual Negative Syphilis Serology Non-reactive COVID-19 ([facility]IVIA) Not detected HIV Ag/Ab Combo Qual 01/01/20 01/01/20 01/01/20 07:50 07:50 07:50 WBC 5.6 RBC 4.36 Hgb 13.1 Hct 40.8 MCV 93.6 MCH 30.1 MCHC 32.1 RDW 13.7 Plt Count 232 MPV 9.5 Sodium 142 Potassium 4.4 Chloride 108 H Carbon Dioxide 31 Anion Gap 3 L BUN 15.0 Creatinine 0.9 Est GFR (CKD-EPI)AfAm 85.20 Est GFR (CKD-EPI)NonAf 73.51 Random Glucose 80 Calcium 9.2 Total Bilirubin 0.4 AST 16 ALT 18 Alkaline Phosphatase 79 Total Protein 6.4 Albumin 3.4 POC Urine HCG, Qual Syphilis Serology COVID-19 (LIVIA) HIV Ag/Ab Combo Qual Negative lab noted Assessment: 01/04/20 09:03 alcohol withdrawal suboxone program Plan: librium regiment suboxone 8-2mg sl bid
[2020-01-04] MEDS: PRENATAL VITAMINS W/ FOLIC ACID TABLET (FP) PO SCH (10:26)
[2020-01-04] MEDS: CITALOPRAM HYDROBROMIDE 10 MG TABLET PO SCH (10:26)
[2020-01-04] MEDS: BUPRENORPHINE/NALOXONE 8 MG/2 MG FILM PACKET SL SCH ×2 (10:27→17:48)
[2020-01-04] MEDS: NICOTINE 14 MG/24 HOURS TOPICAL PATCH TD SCH (10:27)
--- NOTE | 2020-01-04 14:27 | PN ---
BHS Progress Note Note: Psychiatry Attending's note : Noted oversedation. Patient is slow, unsteady. Seroquel discontinued. Falls precautions.
[2020-01-04] MEDS: QUEtiapine FUMARATE 50 MG TABLET PO SCH (23:04)
[2020-01-04] MEDS: THIAMINE HCL 100 MG TABLET (FP) PO SCH (23:04)
[2020-01-04] MEDS: BUDESONIDE/FORMETEROL FUMARATE 80/4.5 mcg INHALER IH SCH (23:04)
[2020-01-04] MEDS: MELATONIN 5 MG TABLETS PO SCH (23:04)
[2020-01-04] MEDS: traZODone HCL 50 MG TABLET (FP) PO SCH (23:04)
[2020-01-05] MEDS: METHOCARBAMOL 500 MG TABLET PO PRN (04:20)
[2020-01-05] MEDS ORDERED: chlordiazePOXIDE HCL 10 MG CAPSULE PO ONE (05:00)
[2020-01-05 09:12] VITALS: BP 90/66; PULSE 88; TEMP 97.1
[2020-01-05] MEDS: BUDESONIDE/FORMETEROL FUMARATE 80/4.5 mcg INHALER IH SCH (09:37)
[2020-01-05] MEDS: CITALOPRAM HYDROBROMIDE 10 MG TABLET PO SCH (09:37)
[2020-01-05] MEDS: BUPRENORPHINE/NALOXONE 8 MG/2 MG FILM PACKET SL SCH (09:37)
[2020-01-05] MEDS: PRENATAL VITAMINS W/ FOLIC ACID TABLET (FP) PO SCH (09:37)
[2020-01-05] MEDS: NICOTINE 14 MG/24 HOURS TOPICAL PATCH TD SCH (09:37)
[2020-01-05] MEDS: NICOTINE POLACRILEX 2 MG GUM BUC PRN (09:42)
--- NOTE | 2020-01-05 10:12 | DS ---
[facility] Detox Discharge Summary Admission Date: 12/31/19 Discharge Date: 01/05/20 - History Present History: Alcohol Dependence Additional Comments: 54 years old female was admitted on 12/31/19 for alcohol withdrawal sx management treated with librium detox regiment seen by psychiatrist donnell vang and leonard ms camejo has completed the librium regiment and is tolerated well ms camejo may return to suboxone maintenance program for behavior and psychos ocial therapies General Appearance: Yes: no Distress, less Tremorous, not Irritable, mild Anxious HEENTM: Yes: Within Normal Limits Respiratory: Yes: Lungs Clear, Normal Breath Sounds, No Respiratory Distress Neck: Yes: Within Normal Limits Breast: Yes: Breast Exam Deferred Cardiology: Yes: Regular Rhythm, Regular Rate Abdominal: Yes: Normal Bowel Sounds, Soft Genitourinary: Yes: Within Normal Limits Back: Yes: Normal Inspection Musculoskeletal: Yes: Back pain, Muscle Pain Extremities: Yes: Tremors Neurological: Yes: Within Normal Limits Integumentary: Yes: Warm Lymphatic: Yes: Within Normal Limits Pertinent Past History: time for discharge 34 minutes - Physical Exam Results Vital Signs: Vital Signs Temperature 97.1 F L 01/05/20 08:57 Pulse Rate 88 01/05/20 08:57 Respiratory Rate 18 01/05/20 08:57 Blood Pressure 90/66 01/05/20 08:57 O2 Sat by Pulse Oximetry (%) 98 01/05/20 06:34 Pertinent Admission Physical Exam Findings: alcohol withdrawal Vital Signs - 24 hr 01/04/20 01/04/20 01/04/20 12:43 16:50 20:41 Temperature 97.2 F L 98.1 F 98.4 F Pulse Rate 84 96 H 95 H Respiratory 16 18 16 Rate Blood Pressure 113/72 118/81 115/74 O2 Sat by Pulse 99 96 Oximetry (%) 01/05/20 01/05/20 06:34 08:57 Temperature 97.2 F L 97.1 F L Pulse Rate 55 L 88 Respiratory 18 18 Rate Blood Pressure 98/68 90/66 O2 Sat by Pulse 98 Oximetry (%) Laboratory Tests 12/31/19 12/31/19 01/01/20 19:00 19:31 07:50 WBC RBC Hgb Hct MCV MCH MCHC RDW Plt Count MPV Sodium Potassium Chloride Carbon Dioxide Anion Gap BUN Creatinine Est GFR (CKD-EPI)AfAm Est GFR (CKD-EPI)NonAf Random Glucose Calcium Total Bilirubin AST ALT Alkaline Phosphatase Total Protein Albumin POC Urine HCG, Qual Negative Syphilis Serology Non-reactive COVID-19 (LIVIA) Not detected HIV Ag/Ab Combo Qual 01/01/20 01/01/20 01/01/20 07:50 07:50 07:50 WBC 5.6 RBC 4.36 Hgb 13.1 Hct 40.8 MCV 93.6 MCH 30.1 MCHC 32.1 RDW 13.7 Plt Count 232 MPV 9.5 Sodium 142 Potassium 4.4 Chloride 108 H Carbon Dioxide 31 Anion Gap 3 L BUN 15.0 Creatinine 0.9 Est GFR (CKD-EPI)AfAm 85.20 Est GFR (CKD-EPI)NonAf 73.51 Random Glucose 80 Calcium 9.2 Total Bilirubin 0.4 AST 16 ALT 18 Alkaline Phosphatase 79 Total Protein 6.4 Albumin 3.4 POC Urine HCG, Qual Syphilis Serology COVID-19 ([facility]IVIA) HIV Ag/Ab Combo Qual Negative lab noted bmi 16.6 low bp denies dizziness alert oriented x 3 ambulating steady gaits skin warm brisk capillary refilled - Treatment Hospital Course: Detox Protocol Followed, Detoxed Safely, Responded well, Discharged Condition Good, Rehab Referral Accepted Patient has Accepted a Rehab Referral to: [facility] - Medication Discharge Medications: Ambulatory Orders Citalopram Hydrobromide [Celexa -] 20 mg PO DAILY #30 tablet 04/10/17 Albuterol Sulfate Inhaler - [Ventolin HFA Inhaler -] 2 inh PO Q4H PRN #1 inhaler 04/13/17 Buprenorphine/Naloxone [Suboxone 2Mg/0.5MG Sl Film -] 1 film SL BID 04/13/17 Buprenorphine/Naloxone [Suboxone 8Mg/2Mg Sl Film -] 1 each SL DAILY #4 film MDD 8mg/2mg 05/08/17 Citalopram Hydrobromide [Celexa -] 20 mg PO DAILY #30 tablet 05/08/17 traZODone HCL [Desyrel -] 50 mg PO HS #30 tablet 05/08/17 Albuterol Sulfate Inhaler - [Ventolin HFA Inhaler -] 2 puff IH Q4H PRN #1 inhaler 09/30/17 Buprenorphine/Naloxone [Suboxone 8Mg/2Mg Sl Film -] 1 each SL DAILY 7 Days #7 film MDD 7 09/30/17 Citalopram Hydrobromide [Celexa -] 20 mg PO DAILY #30 tablet 09/30/17 traZODone HCL [Desyrel -] 50 mg PO HS #30 tablet 09/30/17 Buprenorphine/Naloxone [Suboxone 8Mg/2Mg Sl Film -] 1 each SL BID MDD 8mg/2mg film 12/31/19 - Diagnosis (1) Substance induced mood disorder Current Visit: Yes Status: Suspected (2) Alcohol dependence with uncomplicated withdrawal Current Visit: Yes Status: Acute (3) Encounter for monitoring Suboxone maintenance therapy Current Visit: Yes Status: Chronic (4) Hep C w/o coma, chronic Current Visit: Yes Status: Chronic (5) Nicotine dependence Current Visit: Yes Status: Acute Qualifiers: Nicotine product type: cigarettes Substance use status: in withdrawal Qualified Code(s): F17.213 - Nicotine dependence, cigarettes, with withdrawal (6) Asthma Current Visit: Yes Status: Chronic Qualifiers: Asthma severity: mild Asthma persistence: intermittent Asthma complication type: with status asthmaticus Qualified Code(s): J45.22 - Mild intermittent asthma with status asthmaticus - AMA Did Patient Leave Against Medical Advice: No CIWA Score - CIWA Score Nausea/Vomitin-No Nausea/No Vomiting Muscle Tremors: 1-None Visible, but [place] Anxiety: 0-No Anxiety, at Ease Agitation: 0-Normal Activity Paroxysmal Sweats: No Perspiration Orientation: 0-Oriented Tacttile Disturbances: 0-None Auditory Disturbances: 0-None Visual Disturbances: 0-None Headache: 0-None Present CIWA-Ar Total Score: 1
== END 2020-01-05 09:45 | disposition other institution (70) | DRG 773 ==
LOC: YASAS 15:05 → Y3N 18:42
PROVIDERS: ADMIT Allergy & Immunology; ATTEND Allergy & Immunology
PROC: HZ2ZZZZ Detoxification Services for Substance Abuse Treatment (ICD-10-PCS; principal; 2019-12-31)
DX: F10.230 Alcohol dependence with withdrawal, uncomplicated (principal); F11.20 Opioid dependence, uncomplicated; F14.20 Cocaine dependence, uncomplicated; F17.213 Nicotine dependence, cigarettes, with withdrawal; F19.24 Other psychoactive substance dependence with psychoactive substance-induced mood disorder; F43.10 Post-traumatic stress disorder, unspecified; F32.9 Major depressive disorder, single episode, unspecified; G47.00 Insomnia, unspecified; J45.909 Unspecified asthma, uncomplicated; B18.2 Chronic viral hepatitis C; M19.042 Primary osteoarthritis, left hand; M19.041 Primary osteoarthritis, right hand; D64.9 Anemia, unspecified; Z62.810 Personal history of physical and sexual abuse in childhood; Z51.81 Encounter for therapeutic drug level monitoring; Z79.899 Other long term (current) drug therapy; Z56.0 Unemployment, unspecified; Z59.0 Homelessness
CPT/HCPCS: 36415; 80053; 81025; 85027; 86780; 87389; 90732; 93005; 93010; G0009; Q0162; U0003